=== PATIENT | male | born 1955 | race Caucasian/White ===

== ENCOUNTER 2022-07-18 00:41 | Outpatient (RCR) | payer OTHER, SELFPAY ==
[2022-07-16] MEDS: Normal Saline Flush 10 ML SYR IVP (10:05)
[2022-07-16 10:11] LABS: Abs Immature Grans 0.01 10^3/uL (0.0-0.06); Absolute Basophil Count 0.05 10^3/uL (0.0-0.2); Absolute Eosinophil Count 0.13 10^3/uL (0.0-0.7); Absolute Lymphocyte Count 1.26 10^3/uL (1.2-3.4); Absolute Monocyte Count 0.51 10^3/uL (0.1-0.8); Absolute Neutrophil Count 4.12 10^3/uL (1.2-6.7); Basophils % 0.8; Eosinophils % 2.1; HCT 39.1 % (40.0-50.0); HGB 12.1 g/dL (13.5-17.5); Immature Grans % 0.2; Lymphocytes % 20.7; MCH 23.1 pg (27.0-33.0); MCHC 30.9 % (32.0-36.0); MCV 75 fL (80-95); MPV 9.7 fL (8.0-11.0); Monocytes % 8.4; Neutrophils % 67.8; Platelet Count 390 10^3/uL (130-400); RBC 5.24 10^6/uL (4.36-5.78); RDW 16.5 % (11.8-14.1); WBC 6.08 10^3/uL (4.4-10.8)
[2022-07-16 10:33] LABS: ALT 18 U/L (16-63); AST 9 U/L (15-37); Albumin 3.7 g/dL (3.4-5.0); Alkaline Phosphatase 121 U/L (46-116); Anion Gap 9.3 mmol/L (3-11); BUN 18 mg/dL (7-18); Bilirubin, Total 0.3 mg/dL (0.2-1.0); CO2 26.7 mmol/L (21.0-32.0); CREATININE 1.1 mg/dL (0.70-1.30); Calcium 9.3 mg/dL (8.5-10.1); Chloride 102 mmol/L (98-107); Estimated GFR 73.58 (mL/min/1.73m2); Glucose 233 mg/dL (74-106); Potassium 4.3 mmol/L (3.5-5.1); Sodium 138 mmol/L (136-145); Total Protein 8.3 g/dL (6.4-8.2)
[2022-07-16 10:49] LABS: Anisocytosis 1+; Diff Comment Diff Reviewed; Hypochromasia 1+; Microcytosis 1+
[2022-07-16 10:50] LABS: Poikilocytes 1+
[2022-07-16 19:41] LABS: CEA <0.5 ng/mL (See Note)
[2022-07-18 12:35] VITALS: BP 151/80; PULSE 63; RESP 20; TEMP 36.7; O2SAT 97
[2022-07-18] MEDS: Normal Saline Flush 10 ML SYR IVP (12:39)
[2022-07-18] MEDS: Heparin 500 UNITS/5 ML SYRINGE IV (12:39)
== END 2022-07-23 23:59 | disposition home or self-care (01) ==
LOC: INF 00:41
PROVIDERS: PCP Family Medicine; Visit Provider Internal Medicine Hematology & Oncology
DX: Z45.2 Encounter for adjustment and management of vascular access device (principal); C18.4 Malignant neoplasm of transverse colon
CPT/HCPCS: 36591; 80053; 96523; 82378; 85025

== ENCOUNTER 2022-07-31 08:29 | Emergency (ER) | payer OTHER, SELFPAY ==
[2022-07-31 08:34] VITALS: BP 137/79; PULSE 100; RESP 16; TEMP 36.8; O2SAT 96
--- NOTE | 2022-07-31 08:45 | DI.CT_ITS ---
Exam(s) CT CAROTID NECK CTA EXAM: CT CAROTID NECK CTA CLINICAL HISTORY: port placment 07/09,eval for thrombus/swelling neck. TECHNIQUE: Imaging Protocol: Axial CT angiography was performed with multi-slice acquisition and mu lti-planar and/or 3D reconstructions. CONTRAST MATERIAL: Intravenous: Omnipaque 350 Contrast volume:95 mL COMPARISON: No exams were available for comparison FINDINGS: The examination is limited due to patient motion artifact. CTA Neck W: Common Carotid: Right: No aneurysm, occlusion or significant stenosis. Left: No aneurysm, occlusion or significant stenosis. External Carotid: Right: No aneurysm, occlusion or significant stenosis. Left: No aneurysm, occlusion or significant stenosis. Internal Carotid: Right: No aneurysm, occlusion or significant stenosis. Atherosclerosis at the origin of the right IC A. Left: No aneurysm, occlusion or significant stenosis. Atherosclerosis at the origin of the left ICA. Vertebral Artery: Right: No aneurysm, occlusion or significant stenosis. Left: No aneurysm, occlusion or significant stenosis. Lung Apices: Normal. Bones: Within normal limits for the patient's age. Bilateral maxillary sinus disease. Soft Tissues: Patient has a right IJ catheter. The tip is not included on the examination. Due to t he timing of the bolus and the site of injection the right subclavian and internal jugular are not op acified. There is no soft tissue swelling or focal fluid collection to suggest an abscess or hematom a. IMPRESSION: 1. No evidence of occlusion or significant stenosis on the CT angiography of the neck. RADIATION DOSE DELIVERED: 352.08mGy.cm Total DLP 352.08mGy.cm Total DLP DATA REPOSITORY: All CT scans at this facility are submitted to the National Radiology Data Registry (NRDR) Dose Index Registry (DIR) with the [employer] (ACR). RADIATION OPTIMIZATION: All CT scans at this facility use at least one of these dose optimization te chniques: automated exposure control; mA and/or kV adjustment per patient size (includes targeted exa ms where dose is matched to clinical indication); or iterative reconstruction.
--- NOTE | 2022-07-31 09:00 | DI.CT_ITS ---
Exam(s) CT CHEST PE CTA EXAM: CT CHEST PE CTA CLINICAL HISTORY: dyspnea, colon cancer. TECHNIQUE: Imaging Protocol: Axial CT angiography was performed with multi-slice acquisition and mu lti-planar and/or 3D reconstructions. CONTRAST MATERIAL: Intravenous: Omnipaque 350 contrast volume:60 mL COMPARISON: CT CT CAROTID NECK CTA from 07/31/2022 FINDINGS: Tracheobronchial tree: Patent where visualized. Pulmonary parenchyma: No consolidation or dominant measurable mass. There is a 6 mm nodule in the rig ht lower lobe. There is scarring or atelectasis in the left lung base. There is elevation of the le ft hemidiaphragm. Pulmonary Arteries: The pulmonary arteries are not adequately opacified secondary to bolus timing. T he examination is inadequate for evaluation for pulmonary emboli. Mediastinum and [place]: No dominant adenopathy or fluid collection. The esophagus is unremarkable. Visualized thyroid gland: Unremarkable. Pleura: No effusion or pneumothorax. Heart: The heart is not dilated. Mild coronary artery calcification. No pericardial effusion. The r ight IJ catheter terminates at the cavoatrial junction. Aorta: Thoracic aorta non-dilated. Atherosclerosis is present. Upper abdomen: Unremarkable. Soft tissues: Unremarkable. Bones: Within normal limits for the patient's age. IMPRESSION: 1. Due to the bolus timing, there is suboptimal opacification of the pulmonary arteries. No central pulmonary emboli are seen. 2. 6 mm right lower lobe pulmonary nodule. For low risk patients, no routine follow-up is indicated. For high risk patients, (history of smoking or other known risk factors), consider optional CT scan of the chest in 12 months. (Ailyn et al, 2017). RADIATION DOSE DELIVERED: 467.94mGy.cm Total DLP DATA REPOSITORY: All CT scans at this facility are submitted to the National Radiology Data Registry (NRDR) Dose Index Registry (DIR) with the [employer] (ACR). RADIATION OPTIMIZATION: All CT scans at this facility use at least one of these dose optimization te chniques: automated exposure control; mA and/or kV adjustment per patient size (includes targeted exa ms where dose is matched to clinical indication); or iterative reconstruction.
--- NOTE | 2022-07-31 09:15 | RT.EKG_ITS ---
APPROVED REPORT Exam: Resting ECG Reason for Exam: weakness Patient Location: E HR:90 bpm ECG Measurements Heart Rate 90 AXIS PA 150 P 18 QRSd 124 QRS 94 QT 361 T -40 QTc 443 Conclusion Sinus rhythm...normal P axis, V-rate 60- 99 Nonspecific intraventricular conduction delay...QRSd >115mS, not LBBB/RBBB
--- NOTE | 2022-07-31 09:36 | ED.GENADUL_ITS ---
Discharge Plan Disposition Patient Disposition: Home Discharge Details Clinical Impression: Malaise, Colon cancer Primary Care Provider: Trav Mock ED Provider: Chrissy Coreas Home Meds and New Rx's Prescriptions: Continued (DME) pen needle, diabetic [BD Ultra-Fine Mini Pen Needle] 31 gauge x 3/16 needle See Rx Instructions .ROUTE .MEDSUPPLY Qty: 50 Rx Instructions: Please use 1 needle daily for lantus and 1 weekly for trulicity. Totaling 8 per week. budesonide 32 mcg/actuation spray,non-aerosol 2 spray intranasal DAILY Rx Instructions: administer into each nostril (DME) Easi[employer]ent [employer] Chamber Spacer See Rx Instructions .ROUTE .MEDSUPPLY Qty: 1 Rx Instructions: As directed omega 2-tak-xvz-fish oil [Fish Oil] 1,000 mg (120 mg-180 mg) capsule 1 cap PO DAILY Patient Comments: Not taking (DME) lancets Misc See Rx Instructions .ROUTE .MEDSUPPLY Qty: 100 Rx Instructions: 1 lancet 3 times a day Lantus Solostar U-100 Insulin 100 unit/mL (3 mL) insulin pen 24 unit subcut DAILY Rx Instructions: inject 24 units everyday (2 units wasted daily for priming, total daily use 26) loperamide 2 mg tablet 2 mg PO Q4H PRN Patient Comments: Not taking Rx Instructions: administer after each loose stool until symptoms controlled; do not exceed 8 mg per 24 hrs metformin 500 mg tablet extended release 24 hr 1,000 mg PO BID multivitamin Tablet 1 tab PO DAILY Patient Comments: Not taking (DME) lancets [OneTouch Delica Plus Lancet] 33 gauge misc See Rx Instructions .ROUTE .MEDSUPPLY Qty: 100 Rx Instructions: use 1 lancet up to 3 times a day to check blood sugar (DME) OneTouch Ultra Test Strip See Rx Instructions .ROUTE .MEDSUPPLY Qty: 10 Rx Instructions: 1 strip 3 times a day by miscell albuterol sulfate [ProAir HFA] 90 mcg/actuation HFA aerosol inhaler 2 puff inhalation Q4H PRN sildenafil 100 mg tablet 100 mg PO DAILY PRN Rx Instructions: administer 30 minutes to 4 hours before activity simvastatin 20 mg tablet 20 mg PO DAILY Trulicity 3 mg/0.5 mL pen injector 3 mg subcut QWEEK Rx Instructions: inject 3mg every week by subcutaneous route Discharge Instructions Additional Instructions: Please follow-up at your scheduled appointment tomorrow I recommend picking up an oral thermometer so that you can check your temp on 2 different devices If your temp is persistently greater than 100.4 I do recommend you return to the hospital Please have at least 1010 8 ounce glasses of water today Please return earlier should you have weakness, dizziness, swelling around your neck, or with any new or worsening complaints Please follow-up with your oncologist regarding a pulmonary nodule on your CAT scan, this is an incidental finding Referrals: Trav Mock [Primary Care Provider] - Sonido Hernandez MD [ CONSULTING PHYSICIAN] - 1 day Discharge Data Discharge Date/Time-TO BE ENTERED AT DEPARTURE: 07/31/22 12:25 Medical Decision Making Complex 66-year-old gentleman receiving chemotherapy for colon cancer history with recent port placement with reported temp of 102 with some right-sided neck fullness presents for assessment Secondary to comorbidities and complaints, I did order CTA of patient's neck contrast to evaluate for infection versus occlusion CTA of neck does not show acute abnormality per radiology interpretation my review CTA PE shows evidence of pulmonary nodule but no additional pathology per radiology interpretation my review Patient's vitals are stable aside from mild hypertension, afebrile throughout encounter, this was checked on 4 separate occasions, no fever noted in the emergency department for the entirety of this patient's stay and no antipyretics received no evidence of neutropenic fever, mild lymphopenia and pancytopenia, likely consistent with patient's chemotherapy regimen, no leukopenia lactate is persistent, 1.9, 2 on recheck after 1 L fluid, do not fact suspect that this is sepsis related as the remainder of patient's labs and vitals are within normal limits Sodium of 131, received 1 L of LR BUN of 23 likely consistent with mild dehydration, glucose of 262 without any evidence of diabetic ketoacidosis in a known diabetic, will supplement at home urinalysis without evidence of infection or ketonuria, negative COVID, SARS, and flu Case was discussed with Dr. HANKS, on-call oncologist at [facility] and we discussed admission versus discharge denies patient is afebrile with relatively stable labs, she suspects that the patient is likely having a reaction to his chemotherapy, his 24-hour regimen of chemotherapy is actively infusing and does not show any evidence of infiltration, port seems to be functioning well and has been in place since July 05 Ideally blood cultures would have been drawn from the port, however after reviewing patient's exam and active chemotherapy infusing, we are unable to obtain blood cultures from his port at this time, he did receive 2 peripheral blood cultures and these are pending at this time Patient is given very low threshold to return for reassessment should he develop persistent fever, family was encouraged to purchase 2 thermometers to compare as the initial temp of 102 was on a digital thermometer Patient is fully alert, oriented, pleasant in demeanor and is in no acute distress does not look ill clinically at this time He actually has follow-up tomorrow to have his chemotherapy discharged and will be reassessed at that time Discharged home in stable condition with stable vitals, afebrile HPI General Date/Time Provider Initiated Documentation: 07/31/22 08:45 . HPI Narrative: This 66-year-old male presents with report of neck swelling, fever of 102 this morning. Patient states he was recently started on chemotherapy and had a port placed for colon cancer. Chemotherapy was started on 07/16 and second infusion of chemotherapy yesterday per patient. Has not taken any antipyretics today per patient. Denies any falls or injuries. States he feels slightly short of breath. Denies any new additional pain complaints. Denies any urinary complain ts. Denies any cough. Denies any known sick contacts per patient. Related Data Home Medications Medication Instructions Recorded Confirmed albuterol sulfate 90 mcg/actuation 2 puff inhalation Q4H PRN 03/17/21 07/31/22 aerosol inhaler (ProAir HFA) blood sugar diagnostic (OneTouch #10 ea 03/17/21 Ultra Test strips) budesonide 32 mcg/actuation nasal 2 spray intranasal DAILY 03/17/21 07/31/22 spray dulaglutide 3 mg/0.5 mL 3 mg subcut QWEEK 03/17/21 07/31/22 subcutaneous pen injector ([facility] inhalational spacing device #1 ea 03/17/21 (EasiVent Holding Chamber) insulin glargine 100 unit/mL (3 24 unit subcut DAILY 03/17/21 07/31/22 mL) subcutaneous pen (Lantus Solostar U-100 Insulin) lancets #100 ea 03/17/21 lancets 33 gauge (OneTouch Delica #100 ea 03/17/21 Plus Lancet) loperamide 2 mg tablet 2 mg PO Q4H PRN 03/17/21 metformin 500 mg tablet,extended 1,000 mg PO BID 03/17/21 07/31/22 release 24 hr multivitamin 1 tab PO DAILY 03/17/21 omega 3-qxu-dan-fish oil 1,000 mg 1 cap PO DAILY 03/17/21 (120 mg-180 mg) capsule (Fish Oil) pen needle, diabetic 31 gauge x #50 ea 03/17/2107/08 (BD Ultra-Fine Mini Pen Needle) sildenafil 100 mg tablet 100 mg PO DAILY PRN 03/17/21 07/31/22 simvastatin 20 mg tablet 20 mg PO DAILY 03/17/21 07/31/22 Allergies Allergy/AdvReac Type Severity Reaction Status Date / Time No Known Allergies Allergy Unverified 03/17/21 09:05 General Stated Complaint: GenMedical JUAN PABLO: 3 PFSH All Active Problems (Updated 07/31/22 @ 12:03 by ROCCO Zhao) Malaise (Acute) Colon cancer (Chronic) Chronic, continuous use of opioids (Acute) per PCP for chronic L knee pain s/p 05/28/20 RH Plantar wart of right foot (Acute) 08/29/2020 Pain in left knee (Acute) 08/01/2020 Difficulty swallowing (Acute) 11/08/2018 Osteoarthritis (Chronic) ankle due to trauma Ex-smoker (Acute) 01/21/2020 Electrocardiogram abnormal (Acute) 03/13/2021 Abdominal pain (Acute) Jaw pain (Acute) 12/09/2019 Mechanical low back pain (Acute) 02/01/2019 Idiopathic osteoarthritis (Acute) Disorder of nail (Acute) Onycholysis (Acute) Chronic ulcerative colitis (Acute) 01/12/2018 Glossodynia (Acute) Recurrent acute sinusitis (Acute) Hypertension (Chronic) Essential hypertension (Acute) Mononeuropathy of lower extremity (Acute) Obstructive sleep apnea syndrome (Chronic) 05/28/2019 Psychophysiologic insomnia (Acute) Impotence (Acute) Secondary polycythemia (Acute) Hyperlipidemia (Acute) Testicular hypofunction (Acute) Type 2 diabetes mellitus, uncontrolled (Acute) 01/12/2018 Medical History (Updated 07/31/22 @ 12:03 by ROCCO Zhao) Polyp of colon Surgical History (Updated 03/17/21 @ 13:55 by Yann Ramires) H/O circumcision H/O colonoscopy 03/02/2018 rectal polyp, diverticular disease follow up 5 years, 01/05/2010, 01/01/2008, 08/12/2004, 05/29/2001 H/O shoulder surgery Right Side H/O total knee replacement History of orthopedic surgery 07/07/2009 Left Knee. arthroscopic med meniscectomy -50% Trochlear chondroplasty with medical plica excision Hx of cholecystectomy 10/27/2010-laparscopic, Acute Hx of hernia repair 08/22/2013-incisional Hx of tonsillectomy as a child Family History (Updated 03/17/21 @ 10:25 by Yann Ramires) Father Diabetes Goiter Mother Diabetes Heart disease Cerebral embolism Brother Multiple sclerosis Social History (Updated 03/17/21 @ 10:26 by Yann Ramires) Smoking/Tobacco Use Status: Former Tobacco Use Smoking risk assessment performed?: Yes Substance use type: does not use Do you feel safe at home: Yes Do you feel safe in your relationship?: Yes Exam Narrative Exam Narrative: 66-year-old gentleman appears well, no acute distress, fully alert and oriented, no visible facial swelling, uvula midline, no oropharyngeal erythema or edema, no trismus, pupils equal round reactive to light and accommodation, neck nontender, no visible swelling, no carotid bruit no meningismus Port in place contrast, no surrounding erythema, port accessed with infusion noted Lungs clear to auscultation bilaterally, cardiac rate rhythm regular, no abdominal tenderness appreciated on exam, well-healing and approximated surgical site Fully alert and oriented, no peripheral edema, distal pulses intact Course Vital Signs Vital signs: Vital Signs Temperature 36.8 C 07/31/22 08:34 Pulse 100 H 07/31/22 08:34 Respiratory Rate 16 07/31/22 08:34 Blood Pressure 137/79 07/31/22 08:34 Pulse Oximetry 96 07/31/22 08:34 Temperature 36.8 C 07/31/22 08:34 Temperature Source Oral 07/31/22 08:34 Pulse 100 H 07/31/22 08:34 Respiratory Rate 16 07/31/22 08:34 Blood Pressure 137/79 07/31/22 08:34 Blood Pressure Position Sitting 07/31/22 08:34 Pulse Oximetry 96 07/31/22 08:34 Oxygen Delivery Method Room Air 07/31/22 08:34 Oxygen Flow Rate 0 07/31/22 08:34 Lab/Test Results Lab/Test Results: 07/31/22 08:46 Blood Blood Culture - Pending 07/31/22 08:46 Blood Blood Culture - Pending
[2022-07-31 10:00] LABS: Abs Immature Grans 0.02 10^3/uL (0.0-0.06); Absolute Basophil Count 0.02 10^3/uL (0.0-0.2); Absolute Eosinophil Count 0.18 10^3/uL (0.0-0.7); Absolute Lymphocyte Count 0.17 10^3/uL (1.2-3.4); Absolute Monocyte Count 0.49 10^3/uL (0.1-0.8); Absolute Neutrophil Count 5.33 10^3/uL (1.2-6.7); Basophils % 0.3; Eosinophils % 2.9; HCT 39.8 % (40.0-50.0); HGB 12.6 g/dL (13.5-17.5); Immature Grans % 0.3; Lymphocytes % 2.7; MCH 23.1 pg (27.0-33.0); MCHC 31.7 % (32.0-36.0); MCV 73 fL (80-95); MPV 9.3 fL (8.0-11.0); Monocytes % 7.9; Neutrophils % 85.9; RBC 5.46 10^6/uL (4.36-5.78); RDW 17.7 % (11.8-14.1); RDW-SD 42.5 fL; WBC 6.21 10^3/uL (4.4-10.8)
[2022-07-31] MEDS: Lactated Ringers 1,000 ML 1000 ML IV (10:00)
[2022-07-31 10:01] LABS: Lactate 1.9 mmol/L (0.6-1.4)
[2022-07-31 10:14] VITALS: RESP 14
[2022-07-31 10:34] LABS: Diff Comment Diff Reviewed; Microcytosis 2+; Platelet Count 248 10^3/uL (130-400); Poikilocytes 2+; Polychromasia Present
[2022-07-31] MEDS: Omnipaque 350 MG/ML 100 ML BTL IJ (10:36)
[2022-07-31 10:37] LABS: ALT 21 U/L (16-63); AST 12 U/L (15-37); Albumin 3.6 g/dL (3.4-5.0); Alkaline Phosphatase 110 U/L (46-116); Anion Gap 10.6 mmol/L (3-11); BUN 23 mg/dL (7-18); Bilirubin, Total 0.7 mg/dL (0.2-1.0); CO2 23.4 mmol/L (21.0-32.0); CREATININE 1.2 mg/dL (0.70-1.30); Calcium 9.1 mg/dL (8.5-10.1); Chloride 97 mmol/L (98-107); Estimated GFR 66.28 (mL/min/1.73m2); Glucose 262 mg/dL (74-106); Potassium 4.1 mmol/L (3.5-5.1); Sodium 131 mmol/L (136-145); Total Protein 7.9 g/dL (6.4-8.2)
[2022-07-31] MEDS: Normal Saline - Diluent 50 ML VIAL IJ (10:37)
[2022-07-31 10:42] LABS: Troponin I < 50 ng/L (<or=60)
[2022-07-31 10:48] LABS: COVID-19 PCR Negative (Negative); Influenza A PCR Negative (Negative); Influenza B PCR Negative (Negative); RSV PCR Negative (Negative)
[2022-07-31 10:49] LABS: Source Nasopharynx
[2022-07-31 10:55] VITALS: BP 143/76; PULSE 80; RESP 14; TEMP 36.7; O2SAT 97
--- NOTE | 2022-07-31 10:58 | DI.VRAD_ITS ---
PROCEDURE INFORMATION: Exam: CTA Chest With Contrast Exam date and time: 07/31/2022 10:31 AM Age: 66 years old Clinical indication: Dyspnea TECHNIQUE: Imaging protocol: Computed tomographic angiography of the chest with contrast. 3D rendering (Not supervised by radiologist): MIP and/or 3D reconstructed images were created by the technologist. COMPARISON: CT CAROTID NECK CTA 07/31/2022 10:19 AM FINDINGS: Tubes, catheters and devices: Right central venous line with tip in the superior vena cava/right atrium. Pulmonary arteries: Sub optimal opacification of the pulmonary arteries. No central pulmonary emboli. Aorta: Unremarkable. No aortic aneurysm. No aortic dissection. Lungs: Right lower lobe 6 mm lung nodule. Right lower lobe subpleural 3 mm lung nodule. No airspace disease or lung consolidation. Left lower lobe atelectasis. Low lung volumes. Pleural spaces: Bilateral noncalcified pleural plaque. Heart: Unremarkable. No cardiomegaly. No pericardial effusion. Coronary arteries: Calcified coronary artery disease. Lymph nodes: Unremarkable. No enlarged lymph nodes. Diaphragm: Elevated left diaphragm. Bones/joints: Unremarkable. No acute fracture. Soft tissues: Unremarkable. IMPRESSION: 1. Suboptimal opacification of pulmonary arteries. No central pulmonary emboli. 2. Micro nodules.For patients at low risk (minimal or absent history of smoking and of other known risk factors), no routine follow-up is indicated. For patients at high risk (history of smoking or of other known risk factors), consider optional CT Chest at 12 months. (Reference: Romero) REFERENCES: Naveedhokyleigh Montgomery, et al. Guidelines for Management of Incidental Pulmonary Nodules Detected on CT Images: From the Fleischner Society 2017. Radiology. 2017;284(1):228-243. Dictated and Authenticated by: uJlio Ojeda MD. Ordering:STEFANI Lowe MD
[2022-07-31 11:11] LABS: Bilirubin Negative (Negative); Blood Negative (Negative); Clarity Clear (Clear); Glucose >=1000 mg/dL (Negative); Ketones Negative (Negative); Leukocyte Esterase Negative (Negative); Nitrite Negative (Negative); Urobilinogen 0.2 mg/dL (Up to 0.2); pH 5.5 (5-8)
[2022-07-31 11:24] LABS: Bacteria Rare HPF (Negative); C & S Indicated? No; Casts Negative LPF (Negative); Crystals Negative HPF (Negative); Epithelial Cells Rare HPF (Negative); Mucus Trace (Negative); RBC 0-2 HPF (0-2); WBC 0-2 HPF (0-5)
--- NOTE | 2022-07-31 11:24 | DI.VRAD_ITS ---
PROCEDURE INFORMATION: Exam: CTA Neck With Contrast Exam date and time: 07/31/2022 10:19 AM Age: 66 years old Clinical indication: Device placement; Other: Port eval; Prior surgery TECHNIQUE: Imaging protocol: Computed tomographic angiography of the neck with contrast. 3D rendering (Not supervised by radiologist): MIP and/or 3D reconstructed images were created by the technologist. COMPARISON: No relevant prior studies available. FINDINGS: Tubes, catheters and devices: Right IJ central venous catheter tip terminates in the cavoatrial junction in correlation with the recent CT chest. Right common carotid artery: No stenosis. No dissection or occlusion. Right internal carotid artery: No significant proximal ICA stenosis by NASCET criteria. Right external carotid artery: No occlusion or stenosis of the origin. Left common carotid artery: No stenosis. No dissection or occlusion. Left internal carotid artery: No significant proximal ICA stenosis by NASCET criteria. Left external carotid artery: No occlusion or stenosis of the origin. Right vertebral artery: No stenosis. No dissection or occlusion. Left vertebral artery: No stenosis. No dissection or occlusion. Soft tissues: No significant soft tissue swelling. Bones/joints: No acute fracture. Lungs: The visualized lung apex is clear. IMPRESSION: No stenosis or occlusion. REFERENCES: NASCET CRITERIA. The degree of stenosis in the cervical segment of the internal carotid artery is based on NASCET criteria. Normal is no stenosis. Mild is less than 50% stenosis. Moderate is 50-69% stenosis. Severe is 70% to 99% stenosis. Total occlusion is no detectable patent lumen. Dictated and Authenticated by: Katarzyna Goodwin MD. Ordering:STEFANI Lowe MD
[2022-07-31 12:06] VITALS: BP 147/80; PULSE 78; RESP 14; O2SAT 97
== END 2022-07-31 12:25 | disposition home or self-care (01) ==
PROVIDERS: Emergency Provider Physician Assistant; PCP Family Medicine
DX: C18.9 Malignant neoplasm of colon, unspecified (principal); R53.81 Other malaise; I10 Essential (primary) hypertension; E11.9 Type 2 diabetes mellitus without complications; R91.1 Solitary pulmonary nodule; Z79.84 Long term (current) use of oral hypoglycemic drugs; Z20.822 Contact with and (suspected) exposure to COVID-19
CPT/HCPCS: 36415; 70498; 71275; 80053; 87040; 87637; 93005; 96360; 99285; 81003; 81015; 83605; 84484; 85025; 93010; J3490

== ENCOUNTER 2022-08-15 00:07 | Outpatient (RCR) | payer OTHER, SELFPAY ==
[2022-07-24 00:23] VITALS: BP 151/80; PULSE 63; RESP 20; TEMP 36.7
[2022-07-30 10:15] LABS: Abs Immature Grans 0.02 10^3/uL (0.0-0.06); Absolute Basophil Count 0.05 10^3/uL (0.0-0.2); Absolute Eosinophil Count 0.12 10^3/uL (0.0-0.7); Absolute Lymphocyte Count 1.36 10^3/uL (1.2-3.4); Absolute Monocyte Count 0.45 10^3/uL (0.1-0.8); Eosinophils % 2.4; HCT 41.4 % (40.0-50.0); HGB 12.8 g/dL (13.5-17.5); Immature Grans % 0.4; Lymphocytes % 26.7; MCH 23.1 pg (27.0-33.0); MCHC 30.9 % (32.0-36.0); MCV 75 fL (80-95); Monocytes % 8.8; Neutrophils % 60.7; Platelet Count 277 10^3/uL (130-400); RBC 5.55 10^6/uL (4.36-5.78); RDW 17.6 % (11.8-14.1); RDW-SD 44.6 fL
[2022-07-30] MEDS: Normal Saline Flush 10 ML SYR IVP (10:22)
[2022-07-30 11:16] LABS: ALT 20 U/L (16-63); AST 9 U/L (15-37); Albumin 3.6 g/dL (3.4-5.0); Alkaline Phosphatase 136 U/L (46-116); Anion Gap 10.3 mmol/L (3-11); BUN 23 mg/dL (7-18); Bilirubin, Total 0.3 mg/dL (0.2-1.0); CO2 24.7 mmol/L (21.0-32.0); CREATININE 1.3 mg/dL (0.70-1.30); Calcium 9.3 mg/dL (8.5-10.1); Chloride 98 mmol/L (98-107); Estimated GFR 60.21 (mL/min/1.73m2); Glucose 395 mg/dL (74-106); Potassium 4.4 mmol/L (3.5-5.1); Sodium 133 mmol/L (136-145); Total Protein 7.8 g/dL (6.4-8.2)
[2022-08-01] MEDS: Heparin 500 UNITS/5 ML SYRINGE IV (13:00)
[2022-08-01] MEDS: Normal Saline Flush 10 ML SYR IVP (13:00)
[2022-08-13 09:40] LABS: Abs Immature Grans 0.01 10^3/uL (0.0-0.06); Absolute Basophil Count 0.03 10^3/uL (0.0-0.2); Absolute Eosinophil Count 0.05 10^3/uL (0.0-0.7); Absolute Lymphocyte Count 1.71 10^3/uL (1.2-3.4); Absolute Monocyte Count 0.43 10^3/uL (0.1-0.8); Basophils % 0.7; Eosinophils % 1.2; HCT 40.3 % (40.0-50.0); HGB 12.6 g/dL (13.5-17.5); Immature Grans % 0.2; Lymphocytes % 42.1; MCH 23.3 pg (27.0-33.0); MCHC 31.3 % (32.0-36.0); MCV 75 fL (80-95); MPV 9.2 fL (8.0-11.0); Monocytes % 10.6; Neutrophils % 45.2; Platelet Count 201 10^3/uL (130-400); RDW 19.1 % (11.8-14.1); RDW-SD 46.4 fL; WBC 4.06 10^3/uL (4.4-10.8)
[2022-08-13 09:46] LABS: Absolute Neutrophil Count 1.84 10^3/uL (1.2-6.7)
[2022-08-13 09:52] LABS: Diff Comment RBC Morph Reviewed; Microcytosis 1+
[2022-08-13 09:55] LABS: ALT 27 U/L (16-63); AST 14 U/L (15-37); Albumin 3.7 g/dL (3.4-5.0); Alkaline Phosphatase 124 U/L (46-116); Anion Gap 7.8 mmol/L (3-11); BUN 21 mg/dL (7-18); Bilirubin, Total 0.5 mg/dL (0.2-1.0); CO2 25.2 mmol/L (21.0-32.0); CREATININE 1.2 mg/dL (0.70-1.30); Calcium 9.4 mg/dL (8.5-10.1); Chloride 98 mmol/L (98-107); Estimated GFR 66.28 (mL/min/1.73m2); Glucose 291 mg/dL (74-106); Potassium 4.4 mmol/L (3.5-5.1); Sodium 131 mmol/L (136-145); Total Protein 8.1 g/dL (6.4-8.2)
[2022-08-13] MEDS: Normal Saline Flush 10 ML SYR IVP (10:06)
[2022-08-14 02:21] LABS: CEA 1.2 ng/mL (See Note)
[2022-08-15] MEDS: Normal Saline Flush 10 ML SYR IVP (11:02)
[2022-08-15 11:03] VITALS: BP 151/72; PULSE 62; RESP 20; TEMP 36.4; O2SAT 98
[2022-08-15] MEDS: Heparin 500 UNITS/5 ML SYRINGE IV (11:03)
== END 2022-08-22 23:59 | disposition home or self-care (01) ==
LOC: INF 00:07
PROVIDERS: Visit Provider Internal Medicine Hematology & Oncology
DX: C18.4 Malignant neoplasm of transverse colon (principal); Z45.2 Encounter for adjustment and management of vascular access device
CPT/HCPCS: 36591; 80053; 96523; 82378; 85025

== ENCOUNTER 2022-09-12 00:51 | Outpatient (RCR) | payer OTHER, SELFPAY ==
[2022-08-23 00:20] VITALS: BP 151/72; PULSE 62; RESP 20; TEMP 36.4
[2022-08-27 09:49] LABS: Abs Immature Grans 0.01 10^3/uL (0.0-0.06); Absolute Basophil Count 0.04 10^3/uL (0.0-0.2); Absolute Eosinophil Count 0.04 10^3/uL (0.0-0.7); Absolute Lymphocyte Count 1.59 10^3/uL (1.2-3.4); Absolute Monocyte Count 0.67 10^3/uL (0.1-0.8); Basophils % 0.8; Eosinophils % 0.8; HCT 42.2 % (40.0-50.0); HGB 13.3 g/dL (13.5-17.5); Immature Grans % 0.2; Lymphocytes % 32.8; MCH 23.8 pg (27.0-33.0); MCHC 31.5 % (32.0-36.0); MCV 76 fL (80-95); MPV 9.3 fL (8.0-11.0); Monocytes % 13.8; Neutrophils % 51.6; Platelet Count 212 10^3/uL (130-400); RBC 5.59 10^6/uL (4.36-5.78); RDW-SD 51.3 fL; WBC 4.85 10^3/uL (4.4-10.8)
[2022-08-27] MEDS: Normal Saline Flush 10 ML SYR IVP (09:49)
[2022-08-27 10:03] LABS: ALT 26 U/L (16-63); AST 11 U/L (15-37); Albumin 3.6 g/dL (3.4-5.0); Alkaline Phosphatase 125 U/L (46-116); Anion Gap 9.7 mmol/L (3-11); BUN 25 mg/dL (7-18); Bilirubin, Total 0.5 mg/dL (0.2-1.0); CO2 24.3 mmol/L (21.0-32.0); CREATININE 1.3 mg/dL (0.70-1.30); Calcium 9.6 mg/dL (8.5-10.1); Chloride 98 mmol/L (98-107); Estimated GFR 60.21 (mL/min/1.73m2); Glucose 347 mg/dL (74-106); Potassium 4.4 mmol/L (3.5-5.1); Sodium 132 mmol/L (136-145)
[2022-08-27 10:05] LABS: Anisocytosis 2+; Diff Comment RBC Morph Reviewed; Microcytosis 1+
[2022-08-27 10:06] LABS: Poikilocytes 1+
[2022-08-27 21:04] LABS: CEA 1.1 ng/mL (See Note)
[2022-08-29] MEDS: Heparin 500 UNITS/5 ML SYRINGE IV (13:00)
[2022-08-29] MEDS: Normal Saline Flush 10 ML SYR IVP (13:00)
[2022-09-10] MEDS: Normal Saline Flush 10 ML SYR IVP (07:38)
[2022-09-10 08:24] LABS: Abs Immature Grans 0.02 10^3/uL (0.0-0.06); Absolute Basophil Count 0.02 10^3/uL (0.0-0.2); Absolute Eosinophil Count 0.09 10^3/uL (0.0-0.7); Absolute Monocyte Count 0.65 10^3/uL (0.1-0.8); Absolute Neutrophil Count 3.37 10^3/uL (1.2-6.7); Basophils % 0.3; Eosinophils % 1.5; HCT 41.7 % (40.0-50.0); Immature Grans % 0.3; Lymphocytes % 30.3; MCH 23.9 pg (27.0-33.0); MCHC 31.2 % (32.0-36.0); MCV 77 fL (80-95); MPV 9.6 fL (8.0-11.0); Monocytes % 10.9; Neutrophils % 56.7; Platelet Count 207 10^3/uL (130-400); RBC 5.44 10^6/uL (4.36-5.78); RDW 22.4 % (11.8-14.1); RDW-SD 57.1 fL; WBC 5.95 10^3/uL (4.4-10.8)
[2022-09-10 08:51] LABS: ALT 22 U/L (16-63); AST 15 U/L (15-37); Albumin 3.7 g/dL (3.4-5.0); Alkaline Phosphatase 106 U/L (46-116); Anion Gap 11.1 mmol/L (3-11); BUN 23 mg/dL (7-18); Bilirubin, Total 0.6 mg/dL (0.2-1.0); CO2 24.9 mmol/L (21.0-32.0); CREATININE 1.2 mg/dL (0.70-1.30); Calcium 9.5 mg/dL (8.5-10.1); Chloride 98 mmol/L (98-107); Estimated GFR 66.28 (mL/min/1.73m2); Glucose 310 mg/dL (74-106); Potassium 4.3 mmol/L (3.5-5.1); Sodium 134 mmol/L (136-145)
[2022-09-10 08:52] LABS: Anisocytosis 2+; Diff Comment RBC Morph Reviewed
[2022-09-10 19:20] LABS: CEA 1.7 ng/mL (See Note)
[2022-09-12 10:32] VITALS: BP 133/84; PULSE 69; RESP 18; TEMP 36.6; O2SAT 98
[2022-09-12] MEDS: Normal Saline Flush 10 ML SYR IVP (11:33)
[2022-09-12] MEDS: Heparin 500 UNITS/5 ML SYRINGE IV (11:33)
== END 2022-09-22 23:59 | disposition home or self-care (01) ==
LOC: INF 00:51
PROVIDERS: Visit Provider Internal Medicine Hematology & Oncology
DX: Z45.2 Encounter for adjustment and management of vascular access device (principal); C18.4 Malignant neoplasm of transverse colon
CPT/HCPCS: 36591; 80053; 96523; 82378; 85025

== ENCOUNTER 2022-10-22 00:40 | Outpatient (RCR) | payer OTHER, SELFPAY ==
[2022-09-23 00:08] VITALS: BP 133/84; PULSE 69; RESP 18; TEMP 36.6
[2022-09-24] MEDS: Normal Saline Flush 10 ML SYR IVP (10:04)
[2022-09-24 10:11] LABS: Abs Immature Grans 0.02 10^3/uL (0.0-0.06); Absolute Basophil Count 0.04 10^3/uL (0.0-0.2); Absolute Eosinophil Count 0.06 10^3/uL (0.0-0.7); Absolute Lymphocyte Count 1.41 10^3/uL (1.2-3.4); Absolute Monocyte Count 0.69 10^3/uL (0.1-0.8); Absolute Neutrophil Count 4.47 10^3/uL (1.2-6.7); Basophils % 0.6; Eosinophils % 0.9; HGB 12.6 g/dL (13.5-17.5); Immature Grans % 0.3; Lymphocytes % 21.1; MCH 24.7 pg (27.0-33.0); MCHC 31.5 % (32.0-36.0); MCV 78 fL (80-95); MPV 9.7 fL (8.0-11.0); Monocytes % 10.3; Neutrophils % 66.8; Platelet Count 148 10^3/uL (130-400); RDW 22.7 % (11.8-14.1); RDW-SD 61.5 fL; WBC 6.69 10^3/uL (4.4-10.8)
[2022-09-24 10:26] LABS: ALT 29 U/L (16-63); AST 16 U/L (15-37); Albumin 3.5 g/dL (3.4-5.0); Alkaline Phosphatase 107 U/L (46-116); Anion Gap 6.1 mmol/L (3-11); BUN 24 mg/dL (7-18); Bilirubin, Total 0.6 mg/dL (0.2-1.0); CO2 26.9 mmol/L (21.0-32.0); CREATININE 1.2 mg/dL (0.70-1.30); Calcium 9.1 mg/dL (8.5-10.1); Chloride 99 mmol/L (98-107); Estimated GFR 66.28 (mL/min/1.73m2); Glucose 282 mg/dL (74-106); Potassium 4.5 mmol/L (3.5-5.1); Sodium 132 mmol/L (136-145); Total Protein 7.5 g/dL (6.4-8.2)
[2022-09-24 10:28] LABS: Anisocytosis 2+; Diff Comment Manual Differential; Microcytosis 1+; Poikilocytes 1+
[2022-09-24 19:38] LABS: CEA 1.3 ng/mL (See Note)
[2022-09-26] MEDS: Heparin 500 UNITS/5 ML SYRINGE IV (13:59)
[2022-09-26] MEDS: Normal Saline Flush 10 ML SYR IVP (13:59)
[2022-10-08 09:11] LABS: Abs Immature Grans 0.01 10^3/uL (0.0-0.06); Absolute Basophil Count 0.03 10^3/uL (0.0-0.2); Absolute Eosinophil Count 0.07 10^3/uL (0.0-0.7); Absolute Lymphocyte Count 1.08 10^3/uL (1.2-3.4); Absolute Monocyte Count 0.48 10^3/uL (0.1-0.8); Absolute Neutrophil Count 2.64 10^3/uL (1.2-6.7); Basophils % 0.7; Eosinophils % 1.6; HCT 39.1 % (40.0-50.0); HGB 12.5 g/dL (13.5-17.5); Immature Grans % 0.2; Lymphocytes % 25.1; MCH 25.9 pg (27.0-33.0); MCV 81 fL (80-95); MPV 9.2 fL (8.0-11.0); Monocytes % 11.1; Neutrophils % 61.3; Platelet Count 142 10^3/uL (130-400); RBC 4.83 10^6/uL (4.36-5.78); RDW 23.7 % (11.8-14.1); RDW-SD 67.2 fL; WBC 4.31 10^3/uL (4.4-10.8)
[2022-10-08] MEDS: Normal Saline Flush 10 ML SYR IVP (09:15)
[2022-10-08 09:30] LABS: Anisocytosis 2+; Diff Comment RBC Morph Reviewed
[2022-10-08 09:42] LABS: ALT 26 U/L (16-63); AST 10 U/L (15-37); Albumin 3.4 g/dL (3.4-5.0); Alkaline Phosphatase 118 U/L (46-116); Anion Gap 12.7 mmol/L (3-11); BUN 20 mg/dL (7-18); Bilirubin, Total 0.4 mg/dL (0.2-1.0); CO2 22.3 mmol/L (21.0-32.0); CREATININE 1.2 mg/dL (0.70-1.30); Calcium 8.7 mg/dL (8.5-10.1); Chloride 102 mmol/L (98-107); Estimated GFR 66.28 (mL/min/1.73m2); Glucose 341 mg/dL (74-106); Potassium 4.2 mmol/L (3.5-5.1); Sodium 137 mmol/L (136-145); Total Protein 7.4 g/dL (6.4-8.2)
[2022-10-08 22:14] LABS: CEA 1.3 ng/mL (See Note)
[2022-10-10] MEDS: Normal Saline Flush 10 ML SYR IVP (11:38)
[2022-10-10] MEDS: Heparin 500 UNITS/5 ML SYRINGE IV (11:38)
[2022-10-22] MEDS: Normal Saline Flush 10 ML SYR IVP (10:20)
[2022-10-22 11:20] LABS: Abs Immature Grans 0.02 10^3/uL (0.0-0.06); Absolute Basophil Count 0.03 10^3/uL (0.0-0.2); Absolute Eosinophil Count 0.06 10^3/uL (0.0-0.7); Absolute Monocyte Count 0.51 10^3/uL (0.1-0.8); Absolute Neutrophil Count 1.94 10^3/uL (1.2-6.7); Basophils % 0.7; Eosinophils % 1.4; HCT 44.9 % (40.0-50.0); HGB 14.1 g/dL (13.5-17.5); Immature Grans % 0.5; Lymphocytes % 38.5; MCH 25.7 pg (27.0-33.0); MCHC 31.4 % (32.0-36.0); MCV 82 fL (80-95); MPV 9.5 fL (8.0-11.0); Monocytes % 12.3; Neutrophils % 46.6; Platelet Count 194 10^3/uL (130-400); RBC 5.48 10^6/uL (4.36-5.78); RDW 23.7 % (11.8-14.1); WBC 4.16 10^3/uL (4.4-10.8)
[2022-10-22 11:34] LABS: ALT 31 U/L (16-63); AST 22 U/L (15-37); Albumin 3.6 g/dL (3.4-5.0); Alkaline Phosphatase 119 U/L (46-116); BUN 23 mg/dL (7-18); Bilirubin, Total 0.6 mg/dL (0.2-1.0); CREATININE 1.2 mg/dL (0.70-1.30); Calcium 9.3 mg/dL (8.5-10.1); Chloride 98 mmol/L (98-107); Estimated GFR 65.87 (mL/min/1.73m2); Glucose 348 mg/dL (74-106); Potassium 4.4 mmol/L (3.5-5.1); Sodium 133 mmol/L (136-145); Total Protein 8.2 g/dL (6.4-8.2)
[2022-10-22 12:05] LABS: Anisocytosis 1+; Diff Comment RBC Morph Reviewed; Microcytosis 1+
[2022-10-22 20:13] LABS: CEA 1.9 ng/mL (See Note)
== END 2022-10-22 23:59 | disposition home or self-care (01) ==
LOC: INF 00:40
PROVIDERS: Visit Provider Internal Medicine Hematology & Oncology
DX: Z45.9 Encounter for adjustment and management of unspecified implanted device (principal); C18.4 Malignant neoplasm of transverse colon
CPT/HCPCS: 36591; 80053; 96523; 82378; 85025

== ENCOUNTER 2022-11-14 00:07 | Outpatient (RCR) | payer OTHER, SELFPAY ==
[2022-10-23 00:15] VITALS: BP 133/84; PULSE 69; RESP 18; TEMP 36.6
[2022-10-29] MEDS: Normal Saline Flush 10 ML SYR IVP (09:39)
[2022-10-29 10:01] LABS: Abs Immature Grans 0.07 10^3/uL (0.0-0.06); Absolute Basophil Count 0.07 10^3/uL (0.0-0.2); Absolute Eosinophil Count 0.08 10^3/uL (0.0-0.7); Absolute Lymphocyte Count 1.92 10^3/uL (1.2-3.4); Absolute Monocyte Count 0.79 10^3/uL (0.1-0.8); Absolute Neutrophil Count 1.59 10^3/uL (1.2-6.7); Basophils % 1.5; Eosinophils % 1.8; HCT 45.5 % (40.0-50.0); HGB 14.4 g/dL (13.5-17.5); Immature Grans % 1.5; Lymphocytes % 42.5; MCH 26.1 pg (27.0-33.0); MCHC 31.6 % (32.0-36.0); MCV 83 fL (80-95); MPV 9.2 fL (8.0-11.0); Monocytes % 17.5; Neutrophils % 35.2; Platelet Count 383 10^3/uL (130-400); RBC 5.51 10^6/uL (4.36-5.78); RDW 23.5 % (11.8-14.1); RDW-SD 68.8 fL; WBC 4.52 10^3/uL (4.4-10.8)
[2022-10-29 10:16] LABS: ALT 32 U/L (16-63); AST 16 U/L (15-37); Albumin 3.6 g/dL (3.4-5.0); Alkaline Phosphatase 130 U/L (46-116); Anion Gap 10.7 mmol/L (3-11); BUN 21 mg/dL (7-18); Bilirubin, Total 0.4 mg/dL (0.2-1.0); CO2 26.3 mmol/L (21.0-32.0); CREATININE 1.3 mg/dL (0.70-1.30); Calcium 9.8 mg/dL (8.5-10.1); Chloride 97 mmol/L (98-107); Estimated GFR 59.84 (mL/min/1.73m2); Glucose 367 mg/dL (74-106); Potassium 4.5 mmol/L (3.5-5.1); Sodium 134 mmol/L (136-145); Total Protein 8.2 g/dL (6.4-8.2)
[2022-10-29 10:19] LABS: Anisocytosis 2+; Diff Comment RBC Morph Reviewed
[2022-10-29 21:02] LABS: CEA 1.6 ng/mL (See Note)
[2022-10-31] MEDS: Normal Saline Flush 10 ML SYR IVP (10:59)
[2022-10-31] MEDS: Heparin 500 UNITS/5 ML SYRINGE IV (10:59)
[2022-11-12] MEDS: Normal Saline Flush 10 ML SYR IVP (10:20)
[2022-11-12 10:55] LABS: ALT 28 U/L (16-63); AST 19 U/L (15-37); Albumin 3.6 g/dL (3.4-5.0); Alkaline Phosphatase 106 U/L (46-116); Anion Gap 11.4 mmol/L (3-11); BUN 28 mg/dL (7-18); Bilirubin, Total 0.5 mg/dL (0.2-1.0); CO2 26.6 mmol/L (21.0-32.0); CREATININE 1.2 mg/dL (0.70-1.30); Chloride 97 mmol/L (98-107); Estimated GFR 65.87 (mL/min/1.73m2); Glucose 339 mg/dL (74-106); Potassium 4.5 mmol/L (3.5-5.1); Sodium 135 mmol/L (136-145); Total Protein 7.9 g/dL (6.4-8.2)
[2022-11-12 11:59] LABS: Abs Immature Grans 0.01 10^3/uL (0.0-0.06); Absolute Basophil Count 0.03 10^3/uL (0.0-0.2); Absolute Eosinophil Count 0.05 10^3/uL (0.0-0.7); Absolute Monocyte Count 0.59 10^3/uL (0.1-0.8); Absolute Neutrophil Count 2.89 10^3/uL (1.2-6.7); Basophils % 0.6; Eosinophils % 0.9; HCT 43.8 % (40.0-50.0); Immature Grans % 0.2; Lymphocytes % 33.5; MCH 26.9 pg (27.0-33.0); MCV 84 fL (80-95); MPV 9.4 fL (8.0-11.0); Neutrophils % 53.8; Platelet Count 198 10^3/uL (130-400); RDW 22.2 % (11.8-14.1); RDW-SD 67.1 fL; WBC 5.37 10^3/uL (4.4-10.8)
[2022-11-12 12:22] LABS: Anisocytosis 2+; Diff Comment RBC Morph Reviewed
[2022-11-12 20:56] LABS: CEA 1.1 ng/mL (See Note)
[2022-11-14] MEDS: Normal Saline Flush 10 ML SYR IVP (11:49)
[2022-11-14] MEDS: Heparin 500 UNITS/5 ML SYRINGE IV (11:49)
== END 2022-11-22 23:59 | disposition home or self-care (01) ==
LOC: INF 00:07
PROVIDERS: Visit Provider Internal Medicine Hematology & Oncology
DX: C18.4 Malignant neoplasm of transverse colon (principal); Z45.2 Encounter for adjustment and management of vascular access device
CPT/HCPCS: 36591; 80053; 96523; 82378; 85025

== ENCOUNTER 2022-12-23 01:19 | Outpatient (RCR) | payer OTHER, SELFPAY ==
[2022-11-23 00:14] VITALS: BP 133/84; PULSE 69; RESP 18; TEMP 36.6
[2022-11-26] MEDS: Normal Saline Flush 10 ML SYR IVP (09:59)
[2022-11-26 10:11] LABS: Abs Immature Grans 0.02 10^3/uL (0.0-0.06); Absolute Basophil Count 0.04 10^3/uL (0.0-0.2); Absolute Eosinophil Count 0.06 10^3/uL (0.0-0.7); Absolute Lymphocyte Count 1.44 10^3/uL (1.2-3.4); Absolute Monocyte Count 0.49 10^3/uL (0.1-0.8); Absolute Neutrophil Count 2.57 10^3/uL (1.2-6.7); Basophils % 0.9; Eosinophils % 1.3; HCT 45.7 % (40.0-50.0); HGB 14.4 g/dL (13.5-17.5); Immature Grans % 0.4; Lymphocytes % 31.2; MCH 27.1 pg (27.0-33.0); MCHC 31.5 % (32.0-36.0); MCV 86 fL (80-95); MPV 9.2 fL (8.0-11.0); Monocytes % 10.6; Neutrophils % 55.6; Platelet Count 216 10^3/uL (130-400); RBC 5.31 10^6/uL (4.36-5.78); RDW 21.1 % (11.8-14.1); RDW-SD 65.3 fL; WBC 4.62 10^3/uL (4.4-10.8)
[2022-11-26 10:28] LABS: ALT 29 U/L (16-63); AST 19 U/L (15-37); Albumin 3.8 g/dL (3.4-5.0); Alkaline Phosphatase 95 U/L (46-116); Anion Gap 9.3 mmol/L (3-11); BUN 22 mg/dL (7-18); Bilirubin, Total 0.6 mg/dL (0.2-1.0); CO2 25.7 mmol/L (21.0-32.0); CREATININE 1.2 mg/dL (0.70-1.30); Calcium 9.6 mg/dL (8.5-10.1); Chloride 99 mmol/L (98-107); Estimated GFR 65.87 (mL/min/1.73m2); Glucose 243 mg/dL (74-106); Potassium 4.7 mmol/L (3.5-5.1); Sodium 134 mmol/L (136-145); Total Protein 8.2 g/dL (6.4-8.2)
[2022-11-26 10:33] LABS: Anisocytosis 1+
[2022-11-26 10:34] LABS: Polychromasia Present
[2022-11-28] MEDS: Normal Saline Flush 10 ML SYR IVP (09:15)
[2022-11-28 11:05] VITALS: BP 131/73; PULSE 66; RESP 16; TEMP 36.4; O2SAT 98
[2022-11-29 08:14] LABS: CEA 0.9 ng/mL (See Note)
[2022-11-29] MEDS: Heparin 500 UNITS/5 ML SYRINGE IV (09:15)
[2022-12-10 09:23] LABS: Abs Immature Grans 0.02 10^3/uL (0.0-0.06); Absolute Basophil Count 0.05 10^3/uL (0.0-0.2); Absolute Eosinophil Count 0.13 10^3/uL (0.0-0.7); Absolute Lymphocyte Count 1.81 10^3/uL (1.2-3.4); Absolute Monocyte Count 0.79 10^3/uL (0.1-0.8); Absolute Neutrophil Count 2.77 10^3/uL (1.2-6.7); Basophils % 0.9; Eosinophils % 2.3; HCT 43.8 % (40.0-50.0); Immature Grans % 0.4; Lymphocytes % 32.5; MCH 27.7 pg (27.0-33.0); MCV 87 fL (80-95); MPV 9.8 fL (8.0-11.0); Monocytes % 14.2; Neutrophils % 49.7; Platelet Count 195 10^3/uL (130-400); RBC 5.05 10^6/uL (4.36-5.78); RDW 19.9 % (11.8-14.1); RDW-SD 62.1 fL; WBC 5.57 10^3/uL (4.4-10.8)
[2022-12-10 09:49] LABS: ALT 28 U/L (16-63); AST 16 U/L (15-37); Albumin 3.9 g/dL (3.4-5.0); Alkaline Phosphatase 89 U/L (46-116); Anion Gap 11.5 mmol/L (3-11); BUN 25 mg/dL (7-18); Bilirubin, Total 0.7 mg/dL (0.2-1.0); CO2 25.5 mmol/L (21.0-32.0); CREATININE 1.3 mg/dL (0.70-1.30); Calcium 9.8 mg/dL (8.5-10.1); Chloride 101 mmol/L (98-107); Estimated GFR 59.84 (mL/min/1.73m2); Glucose 220 mg/dL (74-106); Potassium 4.2 mmol/L (3.5-5.1); Sodium 138 mmol/L (136-145)
[2022-12-10] MEDS: Normal Saline Flush 10 ML SYR IVP (13:03)
[2022-12-10 19:14] LABS: CEA 1.2 ng/mL (See Note)
[2022-12-12] MEDS: Heparin 500 UNITS/5 ML SYRINGE IV (10:37)
[2022-12-12] MEDS: Normal Saline Flush 10 ML SYR IVP (10:38)
[2022-12-23 12:01] LABS: Abs Immature Grans 0.01 10^3/uL (0.0-0.06); Absolute Basophil Count 0.03 10^3/uL (0.0-0.2); Absolute Eosinophil Count 0.12 10^3/uL (0.0-0.7); Absolute Monocyte Count 0.64 10^3/uL (0.1-0.8); Absolute Neutrophil Count 1.73 10^3/uL (1.2-6.7); Basophils % 0.6; Eosinophils % 2.6; HGB 14.1 g/dL (13.5-17.5); Immature Grans % 0.2; Lymphocytes % 45.4; MCV 88 fL (80-95); MPV 9.4 fL (8.0-11.0); Monocytes % 13.8; Neutrophils % 37.4; Platelet Count 197 10^3/uL (130-400); RBC 5.03 10^6/uL (4.36-5.78); RDW 19.1 % (11.8-14.1); RDW-SD 59.7 fL; WBC 4.63 10^3/uL (4.4-10.8)
[2022-12-23] MEDS: Normal Saline Flush 10 ML SYR IVP (12:14)
[2022-12-23 12:20] LABS: ALT 26 U/L (16-63); AST 15 U/L (15-37); Albumin 3.8 g/dL (3.4-5.0); Alkaline Phosphatase 82 U/L (46-116); Anion Gap 9.8 mmol/L (3-11); BUN 19 mg/dL (7-18); Bilirubin, Total 0.7 mg/dL (0.2-1.0); CO2 27.2 mmol/L (21.0-32.0); Calcium 9.5 mg/dL (8.5-10.1); Chloride 100 mmol/L (98-107); Estimated GFR 81.98 (mL/min/1.73m2); Glucose 147 mg/dL (74-106); Potassium 4.2 mmol/L (3.5-5.1); Sodium 137 mmol/L (136-145); Total Protein 7.7 g/dL (6.4-8.2)
[2022-12-23 21:13] LABS: CEA 0.9 ng/mL (See Note)
== END 2022-12-23 23:59 | disposition home or self-care (01) ==
LOC: INF 01:19
PROVIDERS: Visit Provider Internal Medicine Hematology & Oncology
DX: C18.4 Malignant neoplasm of transverse colon (principal); Z45.2 Encounter for adjustment and management of vascular access device
CPT/HCPCS: 36415; 36591; 80053; 96523; 82378; 85025

== ENCOUNTER 2022-12-26 00:07 | Outpatient (RCR) | payer OTHER, SELFPAY ==
[2022-12-26] MEDS: Normal Saline Flush 10 ML SYR IVP (10:15)
[2022-12-26] MEDS: Heparin 500 UNITS/5 ML SYRINGE IV (10:15)
== END 2023-01-22 23:59 | disposition home or self-care (01) ==
LOC: INF 00:07
PROVIDERS: Visit Provider Internal Medicine Hematology & Oncology
DX: Z45.2 Encounter for adjustment and management of vascular access device (principal)
CPT/HCPCS: 96523

== ENCOUNTER 2023-01-14 01:42 | Outpatient (RCR) | payer OTHER, SELFPAY ==
[2022-12-24 00:07] VITALS: BP 131/73; PULSE 66; RESP 16; TEMP 36.4
[2023-01-14 10:52] LABS: Abs Immature Grans 0.02 10^3/uL (0.0-0.06); Absolute Basophil Count 0.03 10^3/uL (0.0-0.2); Absolute Eosinophil Count 0.05 10^3/uL (0.0-0.7); Absolute Lymphocyte Count 1.44 10^3/uL (1.2-3.4); Absolute Monocyte Count 0.53 10^3/uL (0.1-0.8); Basophils % 0.6; HCT 45.3 % (40.0-50.0); HGB 14.5 g/dL (13.5-17.5); Immature Grans % 0.4; Lymphocytes % 28.4; MCH 28.4 pg (27.0-33.0); MCV 89 fL (80-95); MPV 9.2 fL (8.0-11.0); Monocytes % 10.5; Neutrophils % 59.1; Platelet Count 297 10^3/uL (130-400); RBC 5.11 10^6/uL (4.36-5.78); RDW-SD 58.4 fL; WBC 5.07 10^3/uL (4.4-10.8)
[2023-01-14 11:15] LABS: ALT 31 U/L (16-63); AST 10 U/L (15-37); Albumin 3.7 g/dL (3.4-5.0); Alkaline Phosphatase 97 U/L (46-116); Anion Gap 8.8 mmol/L (3-11); BUN 18 mg/dL (7-18); Bilirubin, Total 0.5 mg/dL (0.2-1.0); CO2 28.2 mmol/L (21.0-32.0); CREATININE 1.2 mg/dL (0.70-1.30); Calcium 9.9 mg/dL (8.5-10.1); Chloride 98 mmol/L (98-107); Estimated GFR 65.87 (mL/min/1.73m2); Glucose 208 mg/dL (74-106); Potassium 4.3 mmol/L (3.5-5.1); Sodium 135 mmol/L (136-145); Total Protein 8.1 g/dL (6.4-8.2)
[2023-01-14 19:23] LABS: CEA 0.6 ng/mL (See Note)
== END 2023-01-22 23:59 | disposition home or self-care (01) ==
LOC: INF 01:42
PROVIDERS: Visit Provider Internal Medicine Hematology & Oncology
DX: C18.4 Malignant neoplasm of transverse colon (principal)
CPT/HCPCS: 36415; 80053; 82378; 85025

== ENCOUNTER 2023-05-13 01:24 | Outpatient (CLI) | payer OTHER, SELFPAY ==
[2023-05-13 10:34] LABS: Abs Immature Grans 0.02 10^3/uL (0.0-0.06); Absolute Basophil Count 0.05 10^3/uL (0.0-0.2); Absolute Eosinophil Count 0.09 10^3/uL (0.0-0.7); Absolute Monocyte Count 0.39 10^3/uL (0.1-0.8); Absolute Neutrophil Count 3.74 10^3/uL (1.2-6.7); Basophils % 0.9; Eosinophils % 1.7; HCT 45.3 % (40.0-50.0); HGB 14.4 g/dL (13.5-17.5); Immature Grans % 0.4; Lymphocytes % 20.4; MCH 26.8 pg (27.0-33.0); MCHC 31.8 % (32.0-36.0); MCV 84 fL (80-95); MPV 8.7 fL (8.0-11.0); Monocytes % 7.2; Neutrophils % 69.4; Platelet Count 337 10^3/uL (130-400); RBC 5.37 10^6/uL (4.36-5.78); RDW 16.9 % (11.8-14.1); RDW-SD 51.8 fL; WBC 5.39 10^3/uL (4.4-10.8)
[2023-05-13 10:49] LABS: ALT 32 U/L (16-63); AST 19 U/L (15-37); Albumin 3.4 g/dL (3.4-5.0); Alkaline Phosphatase 111 U/L (46-116); Anion Gap 11.4 mmol/L (3-11); BUN 20 mg/dL (7-18); Bilirubin, Total 0.5 mg/dL (0.2-1.0); CO2 26.6 mmol/L (21.0-32.0); CREATININE 1.2 mg/dL (0.70-1.30); Calcium 9.7 mg/dL (8.5-10.1); Chloride 101 mmol/L (98-107); Estimated GFR 65.87 (mL/min/1.73m2); Glucose 173 mg/dL (74-106); Potassium 4.4 mmol/L (3.5-5.1); Sodium 139 mmol/L (136-145); Total Protein 8.4 g/dL (6.4-8.2)
[2023-05-13 20:35] LABS: CEA 0.8 ng/mL (See Note)
== END 2023-05-13 01:25 | disposition home or self-care (01) ==
PROVIDERS: Visit Provider Nurse Practitioner Family
DX: C18.4 Malignant neoplasm of transverse colon (principal)
CPT/HCPCS: 36415; 80053; 82378; 85025

== ENCOUNTER → 2023-07-07 01:24 | Outpatient (CLI) | payer OTHER, SELFPAY ==
[2023-07-07] MEDS: Barium Sulfate 2% W/V-Berry Smoothie 450 ML BTL PO ×2 (10:23→10:24)
[2023-07-07 11:24] LABS: Anion Gap 9.6 mmol/L (3-11); CO2 26.4 mmol/L (21.0-32.0); Chloride 102 mmol/L (98-107); Potassium 4.6 mmol/L (3.5-5.1); Sodium 138 mmol/L (136-145)
[2023-07-07] MEDS: Normal Saline - Diluent 50 ML VIAL IJ (11:24)
[2023-07-07] MEDS: Omnipaque 350 MG/ML 100 ML BTL IJ (11:24)
[2023-07-07 11:25] LABS: ALT 25 U/L (16-63); AST 14 U/L (15-37); Albumin 3.7 g/dL (3.4-5.0); Alkaline Phosphatase 128 U/L (46-116); BUN 15 mg/dL (7-18); Bilirubin, Total 0.5 mg/dL (0.2-1.0); CREATININE 1.2 mg/dL (0.70-1.30); Calcium 9.4 mg/dL (8.5-10.1); Estimated GFR 65.87 (mL/min/1.73m2); Glucose 157 mg/dL (74-106); Total Protein 8.3 g/dL (6.4-8.2)
[2023-07-07 11:28] LABS: Absolute Basophil Count 0.02 10^3/uL (0.0-0.2); Absolute Eosinophil Count 0.05 10^3/uL (0.0-0.7); Absolute Lymphocyte Count 0.87 10^3/uL (1.2-3.4); Absolute Monocyte Count 0.55 10^3/uL (0.1-0.8); Absolute Neutrophil Count 5.01 10^3/uL (1.2-6.7); Basophils % 0.3; Eosinophils % 0.8; HCT 46.4 % (40.0-50.0); Immature Grans % 0.5; Lymphocytes % 13.3; MCH 27.3 pg (27.0-33.0); MCHC 32.3 % (32.0-36.0); MCV 84 fL (80-95); MPV 9.3 fL (8.0-11.0); Monocytes % 8.4; Neutrophils % 76.7; Platelet Count 325 10^3/uL (130-400); RDW 15.2 % (11.8-14.1); RDW-SD 46.5 fL; WBC 6.53 10^3/uL (4.4-10.8)
[2023-07-07 11:29] LABS: Abs Immature Grans 0.03 10^3/uL (0.0-0.06)
--- NOTE | 2023-07-07 11:42 | DI.CT_ITS ---
Exam(s) CT CHEST/ABD/PEL W EXAM: CT CHEST/ABD/PEL W CLINICAL HISTORY: COLON CA WITH METS,C18.9,S/P RESECTION,CHEMO,RESTAGING,D010,[id number]. TECHNIQUE: Imaging Protocol: Axial computed tomography images with coronal and sagittal reformatted images were created and reviewed CONTRAST MATERIAL: Intravenous: Omnipaque 350 Contrast volume:100 ml Oral: Yes. Oral contrast was administered. COMPARISON: CT CT ABD/PELVIS W/ CONTRAST from 04/26/2023 FINDINGS: CHEST: LUNGS: Mild pleural based infiltrates in the right lower lobe. Less than previous and there is prese ntly no pleural fluid. There are no metastatic appearing nodules in the lung currie. There are no p leural effusions. No findings in the trachea and mainstem bronchi. MEDIASTINUM: There is no hilar nor mediastinal adenopathy. Visualized thyroid unremarkable. CARDIAC: Heart size is normal. There is no pericardial effusion.Caliber of the thoracic aorta is wit hin normal limits. OSSEOUS: No significant osseous lesions.. ABDOMEN: There is no ascites. GI: There is a the end-to-end anastomosis at the junction of the mid and distal thirds of the transve rse colon. No obstruction at this level evident although there is abundant fecal material in the ent chrissy colon. There is also dilatation of small-bowel loops which range up to 4.5 cm size. The stomach and duodenal are also distended. There is no evidence of mesenteric swirl sign. Most distal small bowel loops do not appear grossly dilated, measuring 2 cm. Previously described inflammatory process in the left side mesentery is no longer evident. There is presently no evidence of abscess, free ai r, nor ascites. LIVER: There are no focal hepatic lesions nor dilatation of intrahepatic ducts. GALLBLADDER/BILIARY: The gallbladder is again noted to be surgically absent. CBD is not dilated. PANCREAS: No evidence of pancreatic mass nor dilatation of the pancreatic duct. SPLEEN: Spleen is not enlarged. There are no intrasplenic lesions. Splenic and portal veins are simmons nt. ADRENALS: There are no significant adrenal masses. KIDNEYS: No calculi nor hydronephrosis. No solid renal masses. No cysts evident. ABDOMINAL AORTA: No aneurysm evident. Celiac and superior mesenteric arteries are patent. No eviden ce of thrombosis of the portal venous system. LYMPH NODES: There is no retroperitoneal nor paraaortic adenopathy. ABDOMINAL WALL: No evidence of significant anterior abdominal wall nor inguinal hernia. PELVIS: LYMPH NODES: There is no intrapelvic nor inguinal adenopathy. GI: No evidence of appendicitis.Sigmoid diverticuli but no evidence of acute diverticulitis. URINARY BLADDER: No calculi nor masses evident REPRODUCTIVE: Mildly enlarged and calcified prostate. Calcified seminal vesicles. OSSEOUS: No significant osseous lesions. No fractures. No listhesis. No significant disc space narrowing. IMPRESSION: 1. No evidence of metastatic disease in the chest. No new lung nodules pleural effusions. Mild pleu ral based infiltrate in the right lower lobe noted. No intrathoracic adenopathy. 2. Evidence of previous bowel surgery/surgeries. Surgical anastomosis at the junction of the mid and distal 3rd of the transverse colon noted. There is no significant inflammatory process seen around this region on the present study, with further improvement in this region when compared to the prior CT scan of the 04/26/2023. There is presently no evidence of abscess, ascites, nor free air. 3. There is persistent dilatation of the stomach duodenal, and most of the small bowel loops but no t rue high-grade small-bowel obstruction, pneumatosis, nor ascites. 4. No new mesenteric masses. No evidence of omental cake. 5. No significant liver lesions. Gallbladder again noted be surgically absent. Biliary tree is not significantly dilated. RADIATION DOSE DELIVERED: Total DLP DATA REPOSITORY: All CT scans at this facility are submitted to the National Radiology Data Registry (NRDR) Dose Index Registry (DIR) with the [employer] (ACR). RADIATION OPTIMIZATION: All CT scans at this facility use at least one of these dose optimization te chniques: automated exposure control; mA and/or kV adjustment per patient size (includes targeted exa ms where dose is matched to clinical indication); or iterative reconstruction.
[2023-07-07 18:35] LABS: CEA <0.5 ng/mL (See Note)
== END ==
PROVIDERS: Visit Provider Internal Medicine Hematology & Oncology
DX: C18.9 Malignant neoplasm of colon, unspecified (principal)
CPT/HCPCS: 74177; 80053; 71260; 82378; 85025; J3490

== ENCOUNTER 2023-10-12 12:02 | Outpatient (CLI) | payer OTHER, SELFPAY ==
[2023-10-12 09:40] LABS: Abs Immature Grans 0.02 10^3/uL (0.0-0.06); Absolute Basophil Count 0.04 10^3/uL (0.0-0.2); Absolute Eosinophil Count 0.07 10^3/uL (0.0-0.7); Absolute Lymphocyte Count 1.24 10^3/uL (1.2-3.4); Absolute Monocyte Count 0.48 10^3/uL (0.1-0.8); Absolute Neutrophil Count 3.53 10^3/uL (1.2-6.7); Basophils % 0.7 %; Eosinophils % 1.3 %; HCT 43.1 % (40.0-50.0); HGB 13.7 g/dL (13.5-17.5); Immature Grans % 0.4 %; MCH 26.5 pg (27.0-33.0); MCHC 31.8 % (32.0-36.0); MCV 83 fL (80-95); MPV 9.4 fL (8.0-11.0); Monocytes % 8.9 %; Neutrophils % 65.7 %; Platelet Count 286 10^3/uL (130-400); RBC 5.17 10^6/uL (4.36-5.78); RDW-SD 51.7 fL; WBC 5.38 10^3/uL (4.4-10.8)
[2023-10-12 10:06] LABS: ALT 27 U/L (16-63); AST 16 U/L (15-37); Albumin 3.5 g/dL (3.4-5.0); Alkaline Phosphatase 146 U/L (46-116); Anion Gap 9.3 mmol/L (3-11); BUN 20 mg/dL (7-18); Bilirubin, Total 0.5 mg/dL (0.2-1.0); CO2 26.7 mmol/L (21.0-32.0); CREATININE 1.1 mg/dL (0.70-1.30); Chloride 103 mmol/L (98-107); Estimated GFR 72.67 (mL/min/1.73m2); Glucose 138 mg/dL (74-106); Potassium 4.5 mmol/L (3.5-5.1); Sodium 139 mmol/L (136-145); Total Protein 7.4 g/dL (6.4-8.2)
[2023-10-12 18:08] LABS: CEA <0.5 ng/mL (See Note)
== END 2023-10-12 12:03 | disposition home or self-care (01) ==
LOC: LBO 12:07
PROVIDERS: Visit Provider Internal Medicine Hematology & Oncology
DX: C18.9 Malignant neoplasm of colon, unspecified (principal)
CPT/HCPCS: 36415; 80053; 82378; 85025

== ENCOUNTER 2024-01-02 01:02 | Outpatient (CLI) | payer OTHER, SELFPAY ==
--- NOTE | 2024-01-02 | DI.CT_ITS ---
Exam(s) CT CHEST/ABD/PEL W EXAM: CT CHEST/ABD/PEL W CLINICAL HISTORY: [id number],ca gi tract,colon ca,h/o resection,d01.9,c18.4. TECHNIQUE: Imaging Protocol: Axial computed tomography images with coronal and sagittal reformatted images were created and reviewed CONTRAST MATERIAL: Intravenous: Omnipaque 350 Contrast volume:100 ml Oral: yes / no COMPARISON: CT CT CHEST/ABD/PEL W from 07/07/2023 FINDINGS: CHEST: Tracheobronchial tree: Patent. Pulmonary parenchyma: No consolidation or dominant measurable mass. Mild atelectasis at left lung ba se. Pleura: No effusion or pneumothorax. Mediastinum: Within normal limits. Aorta: Thoracic portion non-dilated. Pulmonary arteries: No visible emboli. Heart: No pericardial effusion. Bones: Unremarkable for age. No lytic or blastic lesions.No compression fractures. Soft tissues: Mild bilateral gynecomastia.. ABDOMEN and PELVIS: Liver: Normal density. No measurable mass. Gallbladder and biliary tract: Status post cholecystectomy. No biliary dilatation. Pancreas: Normal density, no abnormal calcifications or inflammatory process. Spleen: Normal. Kidneys: Normal size, contour and axis. No radiodense stones. No obstructive uropathy. No suspicious masses seen. Adrenal glands: No masses seen. Aorta: Abdominal portion non-dilated. Lymph nodes: Within normal limits. Soft tissues: Unremarkable. Bladder: Unremarkable. Bowel: No obstruction or bowel wall thickening. Suture material transverse colon. Suture material is also seen in mid to distal small bowel. Large quantity stool throughout colon. Peritoneal cavity: No ascites. No focal collection. No mesenteric inflammatory response. No free ai r. Bones: Unremarkable for age. Reproductive organs: Within normal limits. IMPRESSION: No evidence of metastatic disease in the chest, abdomen or pelvis. RADIATION DOSE DELIVERED: 804.37mGy.cm Total DLP DATA REPOSITORY: All CT scans at this facility are submitted to the National Radiology Data Registry (NRDR) Dose Index Registry (DIR) with the [employer] (ACR). RADIATION OPTIMIZATION: All CT scans at this facility use at least one of these dose optimization te chniques: automated exposure control; mA and/or kV adjustment per patient size (includes targeted exa ms where dose is matched to clinical indication); or iterative reconstruction.
[2024-01-02] MEDS: Barium Sulfate 2% W/V-Berry Smoothie 450 ML BTL PO ×2 (11:01→11:03)
[2024-01-02 11:03] LABS: Abs Immature Grans 0.01 10^3/uL (0.0-0.06); Absolute Basophil Count 0.03 10^3/uL (0.0-0.2); Absolute Eosinophil Count 0.09 10^3/uL (0.0-0.7); Absolute Lymphocyte Count 1.58 10^3/uL (1.2-3.4); Absolute Neutrophil Count 3.42 10^3/uL (1.2-6.7); Basophils % 0.5 %; Eosinophils % 1.6 %; HCT 49.2 % (40.0-50.0); HGB 15.7 g/dL (13.5-17.5); Immature Grans % 0.2 %; Lymphocytes % 27.6 %; MCH 27.3 pg (27.0-33.0); MCHC 31.9 % (32.0-36.0); MCV 86 fL (80-95); Monocytes % 10.5 %; Neutrophils % 59.6 %; Platelet Count 257 10^3/uL (130-400); RBC 5.75 10^6/uL (4.36-5.78); RDW 14.5 % (11.8-14.1); RDW-SD 45.6 fL; WBC 5.73 10^3/uL (4.4-10.8)
[2024-01-02 11:21] LABS: ALT 31 U/L (16-63); AST 18 U/L (15-37); Albumin 3.7 g/dL (3.4-5.0); Alkaline Phosphatase 155 U/L (46-116); Anion Gap 6.5 mmol/L (3-11); BUN 20 mg/dL (7-18); Bilirubin, Total 0.61 mg/dL (0.2-1.0); CO2 27.5 mmol/L (21.0-32.0); CREATININE 1.1 mg/dL (0.70-1.30); Calcium 9.4 mg/dL (8.5-10.1); Chloride 99 mmol/L (98-107); Estimated GFR 72.67 (mL/min/1.73m2); Glucose 116 mg/dL (74-106); Potassium 4.7 mmol/L (3.5-5.1); Sodium 133 mmol/L (136-145); Total Protein 7.9 g/dL (6.4-8.2)
[2024-01-02] MEDS: Omnipaque 350 MG/ML 100 ML BTL IJ (12:59)
[2024-01-02] MEDS: Normal Saline - Diluent 50 ML VIAL IJ (13:00)
[2024-01-02 18:20] LABS: CEA 0.6 ng/mL (See Note)
== END 2024-01-02 01:22 ==
PROVIDERS: PCP Family Medicine; Visit Provider Nurse Practitioner Family
DX: C18.4 Malignant neoplasm of transverse colon (principal)
CPT/HCPCS: 74177; 80053; 71260; 82378; 85025; J3490

== ENCOUNTER 2024-04-12 16:32 | Outpatient (CLI) | payer OTHER, SELFPAY ==
[2024-04-12 13:05] LABS: Abs Immature Grans 0.01 10^3/uL (0.0-0.06); Absolute Basophil Count 0.05 10^3/uL (0.0-0.2); Absolute Eosinophil Count 0.07 10^3/uL (0.0-0.7); Absolute Lymphocyte Count 1.62 10^3/uL (1.2-3.4); Absolute Monocyte Count 0.61 10^3/uL (0.1-0.8); Absolute Neutrophil Count 3.29 10^3/uL (1.2-6.7); Basophils % 0.9 %; Eosinophils % 1.2 %; HCT 50.3 % (40.0-50.0); HGB 16.2 g/dL (13.5-17.5); Immature Grans % 0.2 %; Lymphocytes % 28.7 %; MCHC 32.2 % (32.0-36.0); MCV 87 fL (80-95); MPV 9.2 fL (8.0-11.0); Monocytes % 10.8 %; Neutrophils % 58.2 %; Platelet Count 258 10^3/uL (130-400); RBC 5.79 10^6/uL (4.36-5.78); RDW 14.8 % (11.8-14.1); RDW-SD 47.1 fL; WBC 5.65 10^3/uL (4.4-10.8)
[2024-04-12 13:20] LABS: ALT 27 U/L (16-63); AST 15 U/L (15-37); Albumin 3.8 g/dL (3.4-5.0); Alkaline Phosphatase 152 U/L (46-116); Anion Gap 7.9 mmol/L (3-11); BUN 20 mg/dL (7-18); CO2 28.1 mmol/L (21.0-32.0); CREATININE 1.4 mg/dL (0.70-1.30); Calcium 8.9 mg/dL (8.5-10.1); Chloride 103 mmol/L (98-107); Estimated GFR 54.41 (mL/min/1.73m2); Glucose 137 mg/dL (74-106); Potassium 4.8 mmol/L (3.5-5.1); Sodium 139 mmol/L (136-145); Total Protein 7.7 g/dL (6.4-8.2)
[2024-04-12 22:37] LABS: CEA 0.9 ng/mL (See Note)
== END 2024-04-12 16:33 | disposition home or self-care (01) ==
LOC: LBO 16:39
PROVIDERS: PCP Family Medicine; Visit Provider Internal Medicine Hematology & Oncology
DX: C18.4 Malignant neoplasm of transverse colon (principal)
CPT/HCPCS: 36415; 80053; 82378; 85025

== ENCOUNTER 2024-07-05 01:06 | Outpatient (CLI) | payer OTHER, SELFPAY ==
[2024-07-05 09:26] LABS: Abs Immature Grans 0.06 10^3/uL (0.0-0.06); Absolute Basophil Count 0.02 10^3/uL (0.0-0.2); Absolute Eosinophil Count 0.01 10^3/uL (0.0-0.7); Absolute Lymphocyte Count 1.41 10^3/uL (1.2-3.4); Absolute Monocyte Count 0.62 10^3/uL (0.1-0.8); Absolute Neutrophil Count 6.07 10^3/uL (1.2-6.7); Basophils % 0.2 %; Eosinophils % 0.1 %; HCT 48.6 % (40.0-50.0); HGB 16.8 g/dL (13.5-17.5); Immature Grans % 0.7 %; Lymphocytes % 17.2 %; MCH 29.3 pg (27.0-33.0); MCHC 34.6 % (32.0-36.0); MCV 85 fL (80-95); MPV 9.3 fL (8.0-11.0); Monocytes % 7.6 %; Neutrophils % 74.2 %; Platelet Count 270 10^3/uL (130-400); RBC 5.73 10^6/uL (4.36-5.78); RDW 14.6 % (11.8-14.1); RDW-SD 44.2 fL; WBC 8.19 10^3/uL (4.4-10.8)
[2024-07-05 09:50] LABS: ALT 33 U/L (16-63); AST 16 U/L (15-37); Albumin 3.8 g/dL (3.4-5.0); Alkaline Phosphatase 121 U/L (46-116); Anion Gap 11.1 mmol/L (3-11); BUN 28 mg/dL (7-18); Bilirubin, Total 0.8 mg/dL (0.2-1.0); CO2 25.9 mmol/L (21.0-32.0); CREATININE 1.2 mg/dL (0.70-1.30); Calcium 9.4 mg/dL (8.5-10.1); Chloride 101 mmol/L (98-107); Estimated GFR 65.46 (mL/min/1.73m2); Glucose 168 mg/dL (74-106); Potassium 4.4 mmol/L (3.5-5.1); Sodium 138 mmol/L (136-145); Total Protein 7.7 g/dL (6.4-8.2)
[2024-07-05] MEDS: Normal Saline - Diluent 50 ML VIAL IJ (11:14)
[2024-07-05] MEDS: Omnipaque 350 MG/ML 100 ML BTL IJ (11:17)
[2024-07-05] MEDS: Barium Sulfate 2% W/V-Berry Smoothie 450 ML BTL PO ×2 (11:18→11:19)
--- NOTE | 2024-07-05 11:25 | DI.CT_ITS ---
Exam(s) CT CHEST/ABD/PEL W EXAM: CT CHEST/ABD/PEL W CLINICAL HISTORY: COLON CA, METS, CA SITU GI TRACT, [id number] TECHNIQUE: Imaging Protocol: Axial computed tomography images with coronal and sagittal reformatted images were created and reviewed. Lung Computer Aided Detection (CAD) was utilized. CONTRAST MATERIAL: Intravenous: Omnipaque 350 contrast volume:100 mL Oral: Yes COMPARISON: CT CT CHEST/ABD/PEL W from 12/23/[address] CHEST/ABD/PEL W from 07/07/[address] CHEST/ABD/PEL W from 01/02/2024 FINDINGS: CHEST: Tracheobronchial tree: Patent where visualized. No evidence of bronchiectasis. Pulmonary parenchyma: There is elevation of the left hemidiaphragm with scarring in the left lung bas e. There is a new 7 mm nodule in the right upper lobe (series 11, image 40). No architectural disto rtion. Visualized thyroid gland: Unremarkable. Mediastinum and [place]: No dominant adenopathy or fluid collection. The esophagus is unremarkable. Pleura: No effusion or pneumothorax. Heart: The heart is not dilated. Three vessel coronary artery calcification is present. No pericardi al effusion. Pulmonary arteries: No pulmonary emboli are identified. Aorta: Thoracic aorta non-dilated. No evidence of dissection. Atherosclerotic calcification is prese nt. Lymph nodes: Within normal limits. Soft tissues: There is mild gynecomastia. Bones:Within normal limits for the patient's age. No aggressive osseous lesions are present. ABDOMEN: Liver: Normal density. Stable tiny hypodensities in the posterior aspect of the right lobe of the diana er. These likely reflect cysts. No suspicious hepatic masses are present. Portal, Superior Mesenteric, and Splenic Veins: Unremarkable. Gallbladder and Biliary Tract: Status post cholecystectomy. No significant biliary ductal dilatation . Pancreas: Normal density, no abnormal calcifications or inflammatory process. Spleen: Normal. Adrenals: No masses seen. Kidneys: Normal size, contour and axis. No radiodense stones or obstructive uropathy. No masses seen. Abdominal Aorta: Abdominal portion non-dilated. Atherosclerotic calcification is present. Bowel: There is diverticulosis without evidence of diverticulitis. There is an anastomosis in the mi d transverse colon. The anastomosis appears grossly unremarkable. There is no evidence of bowel obs truction or bowel wall thickening. There is also a small bowel anastomosis in the right abdomen. No evidence of appendicitis. Peritoneal Cavity: There is a 1.8 cm soft tissue nodule in the left upper quadrant (series 23, image 58). Metastatic disease should be considered. No free air. Lymph Nodes: There is no ascites. Bones: Within normal limits for the patient's age. No aggressive osseous lesions are present. Soft Tissues: There is fatty atrophy of the right gluteal muscles. PELVIS: Bladder: Symmetric distention, no gross wall thickening. Reproductive Organs: The prostate gland is enlarged and impinges on the base of the urinary bladder. Lymph Nodes: Within normal limits. Bones: Within normal limits. IMPRESSION: 1. 1.8 cm soft tissue nodule in left upper quadrant of the abdomen. Metastatic disease should be con sidered. 2. Anastomoses seen in the mid transverse colon and the right small bowel. 3. New mm nodule in the right upper lobe. Metastatic disease cannot be excluded. RADIATION DOSE DELIVERED: 1,416.56mGy.cm Total DLP DATA REPOSITORY: All CT scans at this facility are submitted to the National Radiology Data Registry (NRDR) Dose Index Registry (DIR) with the [employer] (ACR). RADIATION OPTIMIZATION: All CT scans at this facility use at least one of these dose optimization te chniques: automated exposure control; mA and/or kV adjustment per patient size (includes targeted exa ms where dose is matched to clinical indication); or iterative reconstruction.
[2024-07-05 17:48] LABS: CEA <0.5 ng/mL (See Note)
== END 2024-07-05 01:26 ==
PROVIDERS: PCP Family Medicine; Visit Provider Nurse Practitioner Family
DX: C18.9 Malignant neoplasm of colon, unspecified (principal); D01.9 Carcinoma in situ of digestive organ, unspecified
CPT/HCPCS: 74177; 80053; 71260; 82378; 85025; J3490

== ENCOUNTER 2024-09-06 09:56 | Outpatient (CLI) | payer OTHER, SELFPAY ==
[2024-09-06 13:31] LABS: Abs Immature Grans 0.02 10^3/uL (0.0-0.06); Absolute Basophil Count 0.05 10^3/uL (0.0-0.2); Absolute Eosinophil Count 0.19 10^3/uL (0.0-0.7); Absolute Lymphocyte Count 1.66 10^3/uL (1.2-3.4); Absolute Monocyte Count 0.58 10^3/uL (0.1-0.8); Absolute Neutrophil Count 3.06 10^3/uL (1.2-6.7); Basophils % 0.9 %; Eosinophils % 3.4 %; HCT 46.5 % (40.0-50.0); HGB 15.6 g/dL (13.5-17.5); Immature Grans % 0.4 %; Lymphocytes % 29.9 %; MCH 29.4 pg (27.0-33.0); MCHC 33.5 % (32.0-36.0); MCV 88 fL (80-95); MPV 8.9 fL (8.0-11.0); Monocytes % 10.4 %; Platelet Count 275 10^3/uL (130-400); RDW 13.5 % (11.8-14.1); RDW-SD 43.6 fL; WBC 5.56 10^3/uL (4.4-10.8)
[2024-09-06 13:53] LABS: ALT 27 U/L (16-63); AST 15 U/L (15-37); Albumin 3.7 g/dL (3.4-5.0); Alkaline Phosphatase 139 U/L (46-116); Anion Gap 6.3 mmol/L (3-11); BUN 24 mg/dL (7-18); Bilirubin, Total 0.4 mg/dL (0.2-1.0); CO2 26.7 mmol/L (21.0-32.0); CREATININE 1.1 mg/dL (0.70-1.30); Calcium 9.2 mg/dL (8.5-10.1); Chloride 105 mmol/L (98-107); Estimated GFR 72.67 (mL/min/1.73m2); Glucose 198 mg/dL (74-106); Potassium 4.8 mmol/L (3.5-5.1); Sodium 138 mmol/L (136-145); Total Protein 7.5 g/dL (6.4-8.2)
[2024-09-07 09:16] LABS: CEA <0.5 ng/mL (See Note)
== END 2024-09-06 09:57 | disposition home or self-care (01) ==
PROVIDERS: PCP Family Medicine; Visit Provider Internal Medicine Hematology & Oncology
DX: C18.4 Malignant neoplasm of transverse colon (principal)
CPT/HCPCS: 36415; 80053; 82378; 85025

== ENCOUNTER 2024-10-01 09:28 | Outpatient (CLI) | payer OTHER, SELFPAY ==
[2024-10-01 09:48] LABS: Abs Immature Grans 0.02 10^3/uL (0.0-0.06); Absolute Basophil Count 0.03 10^3/uL (0.0-0.2); Absolute Eosinophil Count 0.08 10^3/uL (0.0-0.7); Absolute Lymphocyte Count 1.22 10^3/uL (1.2-3.4); Absolute Monocyte Count 0.57 10^3/uL (0.1-0.8); Absolute Neutrophil Count 4.72 10^3/uL (1.2-6.7); Basophils % 0.5 %; Eosinophils % 1.2 %; HCT 44.7 % (40.0-50.0); HGB 15.2 g/dL (13.5-17.5); Immature Grans % 0.3 %; Lymphocytes % 18.4 %; MCH 30.6 pg (27.0-33.0); MCV 90 fL (80-95); MPV 9.4 fL (8.0-11.0); Monocytes % 8.6 %; Platelet Count 235 10^3/uL (130-400); RBC 4.97 10^6/uL (4.36-5.78); RDW 15.9 % (11.8-14.1); RDW-SD 42.4 fL; WBC 6.64 10^3/uL (4.4-10.8)
[2024-10-01 10:16] LABS: ALT 24 U/L (16-63); AST 16 U/L (15-37); Albumin 3.6 g/dL (3.4-5.0); Alkaline Phosphatase 103 U/L (46-116); Anion Gap 6.7 mmol/L (3-11); BUN 19 mg/dL (7-18); Bilirubin, Total 0.7 mg/dL (0.2-1.0); CO2 26.3 mmol/L (21.0-32.0); CREATININE 1.2 mg/dL (0.70-1.30); Calcium 8.5 mg/dL (8.5-10.1); Chloride 104 mmol/L (98-107); Estimated GFR 65.46 (mL/min/1.73m2); Glucose 171 mg/dL (74-106); Potassium 4.1 mmol/L (3.5-5.1); Sodium 137 mmol/L (136-145)
[2024-10-01 18:37] LABS: CEA 0.9 ng/mL (See Note)
== END 2024-10-01 09:29 | disposition home or self-care (01) ==
PROVIDERS: Internal Medicine Hematology & Oncology; PCP Family Medicine; Visit Provider Nurse Practitioner Family
DX: C18.4 Malignant neoplasm of transverse colon (principal)
CPT/HCPCS: 36415; 80053; 82378; 85025

== ENCOUNTER 2024-10-08 11:35 | Outpatient (CLI) | payer OTHER, SELFPAY ==
[2024-10-08 11:18] LABS: Abs Immature Grans 0.01 10^3/uL (0.0-0.06); Absolute Basophil Count 0.03 10^3/uL (0.0-0.2); Absolute Eosinophil Count 0.08 10^3/uL (0.0-0.7); Absolute Lymphocyte Count 1.06 10^3/uL (1.2-3.4); Absolute Neutrophil Count 2.56 10^3/uL (1.2-6.7); Basophils % 0.7 %; Eosinophils % 1.9 %; HCT 44.7 % (40.0-50.0); HGB 15.1 g/dL (13.5-17.5); Immature Grans % 0.2 %; Lymphocytes % 25.6 %; MCH 30.8 pg (27.0-33.0); MCHC 33.8 % (32.0-36.0); MCV 91 fL (80-95); MPV 9.2 fL (8.0-11.0); Monocytes % 9.7 %; Neutrophils % 61.9 %; Platelet Count 205 10^3/uL (130-400); RDW 16.9 % (11.8-14.1); RDW-SD 49.7 fL; WBC 4.14 10^3/uL (4.4-10.8)
[2024-10-08 11:37] LABS: ALT 36 U/L (16-63); AST 20 U/L (15-37); Albumin 3.5 g/dL (3.4-5.0); Alkaline Phosphatase 113 U/L (46-116); Anion Gap 7.6 mmol/L (3-11); BUN 11 mg/dL (7-18); Bilirubin, Total 0.9 mg/dL (0.2-1.0); CO2 27.4 mmol/L (21.0-32.0); CREATININE 1.1 mg/dL (0.70-1.30); Calcium 8.7 mg/dL (8.5-10.1); Chloride 104 mmol/L (98-107); Estimated GFR 72.67 (mL/min/1.73m2); Glucose 151 mg/dL (74-106); Potassium 4.4 mmol/L (3.5-5.1); Sodium 139 mmol/L (136-145)
[2024-10-08 18:24] LABS: CEA 0.7 ng/mL (See Note)
== END 2024-10-08 11:36 | disposition home or self-care (01) ==
LOC: LBO 11:36
PROVIDERS: PCP Family Medicine; Visit Provider Nurse Practitioner Family
DX: C18.4 Malignant neoplasm of transverse colon (principal)
CPT/HCPCS: 36415; 80053; 82378; 85025

== ENCOUNTER 2024-11-01 02:07 | Outpatient (CLI) | payer OTHER, SELFPAY ==
[2024-11-01 13:05] LABS: Abs Immature Grans 0.03 10^3/uL (0.0-0.06); HCT 46.0 % (40.0-50.0); HGB 15.6 g/dL (13.5-17.5); Immature Grans % 0.3 %; MCH 30.9 pg (27.0-33.0); MCHC 33.9 % (32.0-36.0); MCV 91 fL (80-95); MPV 9.5 fL (8.0-11.0); Platelet Count 219 10^3/uL (130-400); RBC 5.05 10^6/uL (4.36-5.78); RDW 17.6 % (11.8-14.1); RDW-SD 57.2 fL; WBC 9.55 10^3/uL (4.4-10.8)
[2024-11-01 13:28] LABS: ALT 24 U/L (16-63); AST 13 U/L (15-37); Albumin 3.5 g/dL (3.4-5.0); Alkaline Phosphatase 130 U/L (46-116); Anion Gap 10.1 mmol/L (3-11); BUN 17 mg/dL (7-18); Bilirubin, Total 0.7 mg/dL (0.2-1.0); CO2 25.9 mmol/L (21.0-32.0); Calcium 8.9 mg/dL (8.5-10.1); Chloride 101 mmol/L (98-107); Estimated GFR 80.97 (mL/min/1.73m2); Glucose 195 mg/dL (74-106); Potassium 4.2 mmol/L (3.5-5.1); Sodium 137 mmol/L (136-145); Total Protein 7.4 g/dL (6.4-8.2)
[2024-11-02 08:43] LABS: CEA 0.5 ng/mL (See Note)
== END 2024-11-01 02:08 | disposition home or self-care (01) ==
LOC: LBO 02:07
PROVIDERS: PCP Family Medicine; Visit Provider Internal Medicine Hematology & Oncology
DX: C18.4 Malignant neoplasm of transverse colon (principal)
CPT/HCPCS: 36415; 80053; 82378; 85025

== ENCOUNTER 2024-11-15 02:51 | Outpatient (CLI) | payer OTHER, SELFPAY ==
[2024-11-15 11:12] LABS: Abs Immature Grans 0.01 10^3/uL (0.0-0.06); HCT 45.7 % (40.0-50.0); HGB 15.7 g/dL (13.5-17.5); Immature Grans % 0.2 %; MCH 31.4 pg (27.0-33.0); MCHC 34.4 % (32.0-36.0); MCV 91 fL (80-95); MPV 9.6 fL (8.0-11.0); Platelet Count 220 10^3/uL (130-400); RBC 5.00 10^6/uL (4.36-5.78); RDW 16.7 % (11.8-14.1); RDW-SD 55.5 fL; WBC 5.05 10^3/uL (4.4-10.8)
[2024-11-15 11:38] LABS: Glucose 250 mg/dL (Negative)
[2024-11-15 11:46] LABS: ALT 35 U/L (16-63); AST 18 U/L (15-37); Albumin 3.5 g/dL (3.4-5.0); Alkaline Phosphatase 137 U/L (46-116); Anion Gap 7.1 mmol/L (3-11); BUN 18 mg/dL (7-18); Bilirubin, Total 0.5 mg/dL (0.2-1.0); CO2 27.9 mmol/L (21.0-32.0); Calcium 9.2 mg/dL (8.5-10.1); Chloride 104 mmol/L (98-107); Estimated GFR 72.22 (mL/min/1.73m2); Glucose 183 mg/dL (74-106); Potassium 4.7 mmol/L (3.5-5.1); Sodium 139 mmol/L (136-145); Total Protein 7.2 g/dL (6.4-8.2)
[2024-11-15 19:24] LABS: CEA <0.5 ng/mL (See Note)
== END 2024-11-15 02:52 | disposition home or self-care (01) ==
LOC: LBO 02:51
PROVIDERS: PCP Family Medicine; Visit Provider Internal Medicine Hematology & Oncology
DX: C18.4 Malignant neoplasm of transverse colon (principal)
CPT/HCPCS: 36415; 80053; 81003; 82378; 85025

== ENCOUNTER 2024-12-06 03:45 | Outpatient (CLI) | payer OTHER, SELFPAY ==
[2024-12-06 09:51] LABS: Abs Immature Grans 0.01 10^3/uL (0.0-0.06); HCT 44.6 % (40.0-50.0); HGB 15.1 g/dL (13.5-17.5); Immature Grans % 0.2 %; MCH 31.3 pg (27.0-33.0); MCHC 33.9 % (32.0-36.0); MCV 92 fL (80-95); MPV 9.7 fL (8.0-11.0); Platelet Count 196 10^3/uL (130-400); RBC 4.83 10^6/uL (4.36-5.78); RDW 19.1 % (11.8-14.1); RDW-SD 64.0 fL; WBC 4.12 10^3/uL (4.4-10.8)
[2024-12-06 09:59] LABS: Glucose Negative (Negative)
[2024-12-06 10:12] LABS: RBC Negative HPF (0-2); WBC 0-2 HPF (0-5)
[2024-12-06 10:13] LABS: C & S Indicated? No
[2024-12-06 10:19] LABS: ALT 27 U/L (16-63); AST 17 U/L (15-37); Albumin 3.6 g/dL (3.4-5.0); Alkaline Phosphatase 129 U/L (46-116); Anion Gap 8.1 mmol/L (3-11); BUN 20 mg/dL (7-18); Bilirubin, Total 0.8 mg/dL (0.2-1.0); CO2 25.9 mmol/L (21.0-32.0); Calcium 8.9 mg/dL (8.5-10.1); Chloride 104 mmol/L (98-107); Estimated GFR 72.22 (mL/min/1.73m2); Glucose 175 mg/dL (74-106); Potassium 4.3 mmol/L (3.5-5.1); Sodium 138 mmol/L (136-145); Total Protein 7.2 g/dL (6.4-8.2)
[2024-12-06 22:09] LABS: CEA 0.6 ng/mL (See Note)
== END 2024-12-06 03:46 | disposition home or self-care (01) ==
LOC: LBO 03:45
PROVIDERS: PCP Family Medicine; Visit Provider Nurse Practitioner Family
DX: C18.4 Malignant neoplasm of transverse colon
CPT/HCPCS: 36415; 80053; 81003; 81015; 82378; 85025

== ENCOUNTER 2024-12-25 16:08 | Outpatient (CLI) | payer OTHER, SELFPAY ==
--- NOTE | 2024-12-25 | DI.CT_ITS ---
Exam(s) CT CHEST/ABD/PEL W EXAM: CT CHEST/ABD/PEL W CLINICAL HISTORY: COLON CA,C18.4,CA INSITU COLON,D01.0,RECURRENT. TECHNIQUE: Imaging Protocol: Axial computed tomography images with coronal and sagittal reformatted images were created and reviewed. Computer aided detection (CAD) was utilized. CONTRAST MATERIAL: Intravenous: Omnipaque 350 Contrast volume:100 ml Oral: yes / COMPARISON: CT CT CHEST/ABD/PEL W from 07/07/[address] CHEST/ABD/PEL W from 07/05/2024 FINDINGS: CHEST: Pulmonary parenchyma: No consolidation. Stable nodule in the right upper lobe. New 4 x 6 mid made nodule in the left upper lobe. Mild atelectasis is noted at the lung bases. Tracheobronchial tree: No bronchiectasis. No mucous plugging.No bronchial wall thickening. Pleura: No effusion or pneumothorax. Mediastinum: Within normal limits. Pulmonary arteries: No visible emboli. Cardiovascular: The heart is mildly enlarged. Coronary artery calcifications. No pericardial effusion. Thoracic aorta non-dilated. Bones: Unremarkable for age. No lytic or blastic lesions. No compression fractures. Soft tissues: Unremark mild bilateral gynecomastia. ABDOMEN and PELVIS: Liver: Normal density. Stable tiny cysts. No suspicious mass. Gallbladder and biliary tract: Cholecystectomy. No biliary dilatation. Pancreas: Normal density, no abnormal calcifications or inflammatory process. Spleen: Normal. Kidneys: Normal size, contour and axis. No radiodense stones. No obstructive uropathy. No suspicious masses seen. Adrenal glands: No masses seen. Aorta: Abdominal portion non-dilated. Lymph nodes: Within normal limits. Soft tissues: There is some atrophy of the right gluteal muscles. Bladder: Unremarkable. Bowel: Anastomosis mid transverse colon. Additional anastomosis in the small bowel in the right side of the abdomen. No obstruction or bowel wall thickening. Moderate to increased quantity of stool. Peritoneal cavity: Area of increased density in the left upper quadrant, anterior to the spleen and posterior to the colon now measures 2.2 cm. No ascites. No focal collection. No mesenteric inflammatory response. No free air. Bones: Unremarkable for age. No suspicious lesions. Reproductive organs: prostate mildly enlarged. IMPRESSION: Stable right upper lobe nodule. New 4 x 6 millimeter nodule in the left upper lobe. Mild interval increase in size of soft tissue nodule in the left upper quadrant. Unremarkable bowel anastomoses. RADIATION DOSE DELIVERED: 1,329.62mGy.cm Total DLP DATA REPOSITORY: All CT scans at this facility are submitted to the National Radiology Data Registry (NRDR) Dose Index Registry (DIR) with the [employer] (ACR). RADIATION OPTIMIZATION: All CT scans at this facility use at least one of these dose optimization techniques: automated exposure control; mA and/or kV adjustment per patient size (includes targeted exams where dose is matched to clinical indication); or iterative reconstruction.
[2024-12-25 11:27] LABS: Abs Immature Grans 0.01 10^3/uL (0.0-0.06); HCT 46.4 % (40.0-50.0); HGB 15.5 g/dL (13.5-17.5); Immature Grans % 0.2 %; MCH 31.7 pg (27.0-33.0); MCHC 33.4 % (32.0-36.0); MCV 95 fL (80-95); MPV 9.7 fL (8.0-11.0); Platelet Count 189 10^3/uL (130-400); RBC 4.89 10^6/uL (4.36-5.78); RDW 19.9 % (11.8-14.1); RDW-SD 67.4 fL; WBC 4.48 10^3/uL (4.4-10.8)
[2024-12-25 11:51] LABS: ALT 31 U/L (16-63); AST 20 U/L (15-37); Albumin 4.0 g/dL (3.4-5.0); Alkaline Phosphatase 108 U/L (46-116); Anion Gap 7.0 mmol/L (3-11); BUN 17 mg/dL (7-18); Bilirubin, Total 0.9 mg/dL (0.2-1.0); CO2 27.0 mmol/L (21.0-32.0); Calcium 9.1 mg/dL (8.5-10.1); Chloride 103 mmol/L (98-107); Estimated GFR 80.97 (mL/min/1.73m2); Glucose 144 mg/dL (74-106); Potassium 4.5 mmol/L (3.5-5.1); Sodium 137 mmol/L (136-145); Total Protein 7.8 g/dL (6.4-8.2)
[2024-12-25 12:54] LABS: Glucose 100 mg/dL (Negative)
[2024-12-25 13:03] LABS: RBC Negative HPF (0-2); WBC 0-2 HPF (0-5)
[2024-12-25 13:04] LABS: C & S Indicated? No
[2024-12-25] MEDS: Normal Saline Flush 10 ML SYR IVP (13:06)
[2024-12-25] MEDS: Omnipaque 350 MG/ML 500 ML BTL-Imaging package IJ (13:06)
[2024-12-25] MEDS: Normal Saline - Diluent 50 ML VIAL IJ (13:06)
[2024-12-25] MEDS: Barium Sulfate 2% W/V-Berry Smoothie 450 ML BTL PO ×2 (13:12→13:14)
[2024-12-25 20:19] LABS: CEA <0.5 ng/mL (See Note)
== END 2024-12-25 16:28 ==
PROVIDERS: PCP Family Medicine; Visit Provider Nurse Practitioner Family
DX: D01.0 Carcinoma in situ of colon; R91.8 Other nonspecific abnormal finding of lung field
CPT/HCPCS: 74177; 80053; 71260; 81003; 81015; 82378; 85025

== ENCOUNTER 2025-01-15 04:48 | Outpatient (CLI) | payer MEDICARE, SELFPAY ==
[2025-01-15 14:30] LABS: Abs Immature Grans 0.01 10^3/uL (0.0-0.06); HCT 46.2 % (40.0-50.0); HGB 15.5 g/dL (13.5-17.5); Immature Grans % 0.2 %; MCH 32.9 pg (27.0-33.0); MCHC 33.5 % (32.0-36.0); MCV 98 fL (80-95); MPV 9.5 fL (8.0-11.0); Platelet Count 202 10^3/uL (130-400); RBC 4.71 10^6/uL (4.36-5.78); RDW 19.7 % (11.8-14.1); RDW-SD 70.4 fL; WBC 5.06 10^3/uL (4.4-10.8)
[2025-01-15 14:44] LABS: ALT 27 U/L (16-63); AST 20 U/L (15-37); Albumin 3.9 g/dL (3.4-5.0); Alkaline Phosphatase 85 U/L (46-116); Anion Gap 8.1 mmol/L (3-11); BUN 18 mg/dL (7-18); Bilirubin, Total 0.8 mg/dL (0.2-1.0); CO2 26.9 mmol/L (21.0-32.0); Calcium 9.1 mg/dL (8.5-10.1); Chloride 105 mmol/L (98-107); Estimated GFR 72.22 (mL/min/1.73m2); Glucose 144 mg/dL (74-106); Potassium 4.7 mmol/L (3.5-5.1); Sodium 140 mmol/L (136-145); Total Protein 7.4 g/dL (6.4-8.2)
[2025-01-15 14:49] LABS: Glucose 100 mg/dL (Negative)
[2025-01-15 15:06] LABS: RBC Negative HPF (0-2); WBC Negative HPF (0-5)
[2025-01-15 15:07] LABS: C & S Indicated? No
[2025-01-15 23:02] LABS: CEA <0.5 ng/mL (See Note)
== END 2025-01-15 04:49 | disposition home or self-care (01) ==
LOC: LBO 01-16 04:49
PROVIDERS: PCP Family Medicine; Visit Provider Nurse Practitioner Family
DX: C18.9 Malignant neoplasm of colon, unspecified (principal); C18.4 Malignant neoplasm of transverse colon
CPT/HCPCS: 36415; 80053; 81003; 81015; 82378; 85025

== ENCOUNTER 2025-02-07 05:17 | Outpatient (CLI) | payer MEDICARE, BC, SELFPAY ==
[2025-02-07 09:13] LABS: Abs Immature Grans 0.02 10^3/uL (0.0-0.06); HCT 51.0 % (40.0-50.0); HGB 17.3 g/dL (13.5-17.5); Immature Grans % 0.3 %; MCH 33.7 pg (27.0-33.0); MCHC 33.9 % (32.0-36.0); MCV 99 fL (80-95); MPV 9.6 fL (8.0-11.0); Platelet Count 184 10^3/uL (130-400); RBC 5.14 10^6/uL (4.36-5.78); RDW 18.9 % (11.8-14.1); RDW-SD 68.4 fL; WBC 6.04 10^3/uL (4.4-10.8)
[2025-02-07 09:31] LABS: ALT 36 U/L (16-63); AST 23 U/L (15-37); Albumin 4.0 g/dL (3.4-5.0); Alkaline Phosphatase 104 U/L (46-116); Anion Gap 7.2 mmol/L (3-11); BUN 20 mg/dL (7-18); Bilirubin, Total 1.1 mg/dL (0.2-1.0); CO2 28.8 mmol/L (21.0-32.0); Calcium 9.3 mg/dL (8.5-10.1); Chloride 101 mmol/L (98-107); Estimated GFR 72.22 (mL/min/1.73m2); Glucose 152 mg/dL (74-106); Potassium 4.6 mmol/L (3.5-5.1); Sodium 137 mmol/L (136-145); Total Protein 7.7 g/dL (6.4-8.2)
[2025-02-07 17:41] LABS: CEA <0.5 ng/mL (See Note)
== END 2025-02-07 05:18 | disposition home or self-care (01) ==
LOC: LBO 05:17
PROVIDERS: PCP Family Medicine; Visit Provider Nurse Practitioner Family
DX: C18.4 Malignant neoplasm of transverse colon (principal)
CPT/HCPCS: 36415; 80053; 82378; 85025

== ENCOUNTER 2025-02-13 08:58 | Outpatient (CLI) | payer MEDICARE, BC, SELFPAY ==
[2025-02-13 09:09] LABS: Abs Immature Grans 0.01 10^3/uL (0.0-0.06); HCT 48.8 % (40.0-50.0); HGB 16.5 g/dL (13.5-17.5); Immature Grans % 0.2 %; MCH 34.0 pg (27.0-33.0); MCHC 33.8 % (32.0-36.0); MCV 101 fL (80-95); MPV 9.8 fL (8.0-11.0); Platelet Count 181 10^3/uL (130-400); RBC 4.85 10^6/uL (4.36-5.78); RDW 17.9 % (11.8-14.1); RDW-SD 67.0 fL; WBC 4.30 10^3/uL (4.4-10.8)
[2025-02-13 09:29] LABS: ALT 31 U/L (16-63); AST 22 U/L (15-37); Albumin 3.6 g/dL (3.4-5.0); Alkaline Phosphatase 103 U/L (46-116); Anion Gap 7.9 mmol/L (3-11); BUN 16 mg/dL (7-18); Bilirubin, Total 0.8 mg/dL (0.2-1.0); CO2 28.1 mmol/L (21.0-32.0); Calcium 9.2 mg/dL (8.5-10.1); Chloride 102 mmol/L (98-107); Estimated GFR 65.06 (mL/min/1.73m2); Glucose 163 mg/dL (74-106); Potassium 4.7 mmol/L (3.5-5.1); Sodium 138 mmol/L (136-145); Total Protein 7.1 g/dL (6.4-8.2)
[2025-02-13 18:15] LABS: CEA <0.5 ng/mL (See Note)
== END 2025-02-13 08:59 | disposition home or self-care (01) ==
LOC: LBO 08:59
PROVIDERS: PCP Family Medicine; Visit Provider Nurse Practitioner Family
DX: C18.4 Malignant neoplasm of transverse colon (principal)
CPT/HCPCS: 80053; 82378; 85025

== ENCOUNTER → 2025-03-05 00:30 | Outpatient (CLI) | payer OTHER, SELFPAY ==
--- NOTE | 2025-03-05 | DI.CT_ITS ---
Exam(s) CT CHEST/ABD/PEL W EXAM: CT CHEST/ABD/PEL W CLINICAL HISTORY: STAGE IV COLON CA, C18.9 [id number]. TECHNIQUE: Imaging Protocol: Axial computed tomography images with coronal and sagittal reformatted images were created and reviewed. Computer aided detection (CAD) was utilized. CONTRAST MATERIAL: Intravenous: Omnipaque 350 Contrast volume:98 ml Oral: yes COMPARISON: CT CT CHEST/ABD/PEL W from 07/05/[address] CHEST/ABD/PEL W from 12/25/2024 FINDINGS: CHEST: Pulmonary parenchyma: Increase in size of previously noted right upper lobe nodule, now measuring 11 millimeters in diameter. Interval increase in size of left upper lobe nodule now measuring 7 millimeters in diameter. No consolidation. Stable areas of scarring at the right costophrenic angle. Tracheobronchial tree: No bronchiectasis. No mucous plugging.No bronchial wall thickening. Pleura: No effusion or pneumothorax. Mediastinum: Within normal limits. Pulmonary arteries: No visible emboli. Cardiovascular: Heart size is mildly enlarged. There are moderate to severe coronary artery calcifications. No pericardial effusion. Thoracic aorta non- dilated. Bones: Unremarkable for age. No lytic or blastic lesions. No compression fractures. Soft tissues: There is stable elevation of the left diaphragm. There is mild bilateral gynecomastia. ABDOMEN and PELVIS: Liver: Normal density. No suspicious mass. Gallbladder and biliary tract: Cholecystectomy. No biliary dilatation. Pancreas: Normal density, no abnormal calcifications or inflammatory process. Spleen: Normal. Kidneys: Normal size, contour and axis. No radiodense stones. No obstructive uropathy. No suspicious masses seen. Adrenal glands: No masses seen. Aorta: Abdominal portion non-dilated. Lymph nodes: Within normal limits. Soft tissues: Atrophy involving the right-sided gluteus musculature. Bladder: Unremarkable. Bowel: The anastomosis in the mid transverse colon appears unchanged. Small bowel anastomosis in the right lower quadrant again noted. Moderate to increased quantity of stool. No obstruction or bowel wall thickening. Peritoneal cavity: There has been an increase in size of previously noted areas of soft tissue nodularity in the mesenteric fat of the left upper quadrant, anterior to the spleen and posterior to the splenic flexure. This now measures 2.6 x 2.2 cm. No ascites. No focal collection. No mesenteric inflammatory response. No free air. Bones: Unremarkable for age. Reproductive organs: Unremarkable for age. IMPRESSION: Interval increase in size of previously noted pulmonary nodules in the right and left upper lobes. Mild interval increase in size of previously noted soft tissue density nodule in the left upper quadrant. RADIATION DOSE DELIVERED: Total DLP DATA REPOSITORY: All CT scans at this facility are submitted to the National Radiology Data Registry (NRDR) Dose Index Registry (DIR) with the [employer] (ACR). RADIATION OPTIMIZATION: All CT scans at this facility use at least one of these dose optimization techniques: automated exposure control; mA and/or kV adjustment per patient size (includes targeted exams where dose is matched to clinical indication); or iterative reconstruction.
[2025-03-05] MEDS: Barium Sulfate 2% W/V-Berry Smoothie 450 ML BTL PO (08:30)
[2025-03-05] MEDS: Barium Sulfate 2% W/V-Creamy Vanilla Smoothie 450 ML BTL PO (08:30)
[2025-03-05 09:07] LABS: Abs Immature Grans 0.02 10^3/uL (0.0-0.06); HCT 46.9 % (40.0-50.0); HGB 16.0 g/dL (13.5-17.5); Immature Grans % 0.3 %; MCH 34.1 pg (27.0-33.0); MCHC 34.1 % (32.0-36.0); MCV 100 fL (80-95); MPV 9.4 fL (8.0-11.0); Platelet Count 206 10^3/uL (130-400); RBC 4.69 10^6/uL (4.36-5.78); RDW 16.9 % (11.8-14.1); RDW-SD 62.9 fL; WBC 7.44 10^3/uL (4.4-10.8)
[2025-03-05 09:27] LABS: ALT 30 U/L (16-63); AST 16 U/L (15-37); Albumin 3.7 g/dL (3.4-5.0); Alkaline Phosphatase 94 U/L (46-116); Anion Gap 9.4 mmol/L (3-11); BUN 20 mg/dL (7-18); Bilirubin, Total 0.7 mg/dL (0.2-1.0); CO2 26.6 mmol/L (21.0-32.0); Calcium 8.5 mg/dL (8.5-10.1); Chloride 104 mmol/L (98-107); Glucose 114 mg/dL (74-106); Potassium 4.3 mmol/L (3.5-5.1); Sodium 140 mmol/L (136-145); Total Protein 7.4 g/dL (6.4-8.2)
[2025-03-05] MEDS: Normal Saline - Diluent 50 ML VIAL IJ (10:55)
[2025-03-05] MEDS: Omnipaque 350 MG/ML 100 ML BTL IJ (10:55)
[2025-03-05] MEDS: Normal Saline Flush 10 ML SYR IVP (10:56)
[2025-03-05 18:19] LABS: CEA <0.5 ng/mL (See Note)
== END ==
PROVIDERS: Nurse Practitioner Family; PCP Family Medicine; Visit Provider Internal Medicine Hematology & Oncology
DX: C18.9 Malignant neoplasm of colon, unspecified (principal); R91.8 Other nonspecific abnormal finding of lung field
CPT/HCPCS: 74177; 80053; 71260; 82378; 85025; J3490

== ENCOUNTER 2025-03-26 00:44 | Outpatient (CLI) | payer OTHER, SELFPAY ==
[2025-03-26 12:37] LABS: Abs Immature Grans 0.01 10^3/uL (0.0-0.06); HCT 48.5 % (40.0-50.0); HGB 16.4 g/dL (13.5-17.5); Immature Grans % 0.2 %; MCH 33.8 pg (27.0-33.0); MCHC 33.8 % (32.0-36.0); MCV 100 fL (80-95); MPV 9.3 fL (8.0-11.0); Platelet Count 195 10^3/uL (130-400); RBC 4.85 10^6/uL (4.36-5.78); RDW 15.4 % (11.8-14.1); RDW-SD 57.1 fL; WBC 5.18 10^3/uL (4.4-10.8)
[2025-03-26 13:01] LABS: ALT 23 U/L (10-49); AST 20 U/L (<34); Albumin 4.3 g/dL (3.2-5.0); Alkaline Phosphatase 97 U/L (46-116); Anion Gap 7.4 mmol/L (3-11); BUN 19 mg/dL (9-23); Bilirubin, Total 0.60 mg/dL (0.2-1.2); CO2 28.6 mmol/L (20.0-31.0); Calcium 9.2 mg/dL (8.3-10.6); Chloride 103 mmol/L (98-107); Glucose 144 mg/dL (74-106); Potassium 4.3 mmol/L (3.5-5.1); Sodium 139 mmol/L (136-145); Total Protein 7.4 g/dL (5.7-8.2)
[2025-03-27 18:41] LABS: CEA <0.5 ng/mL (See Note)
== END 2025-03-26 00:45 | disposition home or self-care (01) ==
LOC: LBO 00:46
PROVIDERS: PCP Family Medicine; Visit Provider Nurse Practitioner Family
DX: C18.4 Malignant neoplasm of transverse colon (principal)
CPT/HCPCS: 36415; 80053; 82378; 85025

== ENCOUNTER 2025-04-16 12:18 | Outpatient (CLI) | payer OTHER, SELFPAY ==
[2025-04-16 12:08] LABS: Abs Immature Grans 0.01 10^3/uL (0.0-0.06); HCT 48.2 % (40.0-50.0); HGB 16.5 g/dL (13.5-17.5); Immature Grans % 0.2 %; MCH 34.0 pg (27.0-33.0); MCHC 34.2 % (32.0-36.0); MCV 99 fL (80-95); MPV 9.2 fL (8.0-11.0); Platelet Count 189 10^3/uL (130-400); RBC 4.85 10^6/uL (4.36-5.78); RDW 14.9 % (11.8-14.1); RDW-SD 55.7 fL; WBC 4.94 10^3/uL (4.4-10.8)
[2025-04-16 12:25] LABS: ALT 24 U/L (10-49); AST 22 U/L (<34); Albumin 4.3 g/dL (3.2-5.0); Alkaline Phosphatase 94 U/L (46-116); Anion Gap 6.1 mmol/L (3-11); BUN 17 mg/dL (9-23); Bilirubin, Total 0.7 mg/dL (0.2-1.2); CO2 27.9 mmol/L (20.0-31.0); Calcium 9.3 mg/dL (8.3-10.6); Chloride 103 mmol/L (98-107); Glucose 135 mg/dL (74-106); Potassium 4.5 mmol/L (3.5-5.1); Sodium 137 mmol/L (136-145); Total Protein 7.4 g/dL (5.7-8.2)
[2025-04-16 22:50] LABS: CEA <0.5 ng/mL (See Note)
== END 2025-04-16 12:19 | disposition home or self-care (01) ==
LOC: LBO 12:18
PROVIDERS: PCP Family Medicine; Visit Provider Nurse Practitioner Family
DX: C18.4 Malignant neoplasm of transverse colon (principal)
CPT/HCPCS: 36415; 80053; 82378; 85025